=== PATIENT | female | born 1990 | race Caucasian/White ===

== ENCOUNTER → 2016-11-10 | Outpatient (REF) | payer OTHER ==
[~2016-11-10] MED LIST: ACET50TA PO; ANUS2.5C2 PR; COLA50CA3 PO; DARV100T; FLAG500T OR; IBUP600T26 PO; LABE20TAB PO; LANOOIN21 TOP; LEVA500T OR; LORTTAB5 PO; MOM30SS PO; VICO5TAB PO; no
[2016-11-10 19:40] LABS: HCG, SERUM QUANTITATIVE 118481 MIU/ML
[2016-11-10 21:21] LABS: MEAN CORPUSCULAR HEMOGLOBIN 28.6 pg (27.0-33.0); MEAN CORPUSCULAR HGB CONC 33.6 g/dl (32.0-36.5); MEAN CORPUSCULAR VOLUME 85.1 fl (80.0-96.0); RED CELL DISTRIBUTION WIDTH 14.1 % (11.5-14.5)
[2016-11-11 09:48] LABS: CONTROL LINE INT CTR LINE PRESENT; HIV SCRN NEGATIVE (NEGATIVE); HIV SCRN1 NEGATIVE (NEGATIVE)
[2016-11-11 10:02] LABS: HEPATITIS B SURFACE ANTIBODY POSITIVE (POSITIVE)
== END | disposition home or self-care (01) ==
LOC: M LAB REF 16:41
PROVIDERS: ATTEND Obstetrics & Gynecology
DX: O36.80X0 Pregnancy with inconclusive fetal viability, not applicable or unspecified (principal); Z36 Encounter for antenatal screening of mother; Z3A.00 Weeks of gestation of pregnancy not specified

== ENCOUNTER → 2016-11-20 | Outpatient (REF) | payer OTHER | END | disposition home or self-care (01) | LOC: M LAB REF 12:49 | PROVIDERS: ATTEND Obstetrics & Gynecology | DX: Z34.81 Encounter for supervision of other normal pregnancy, first trimester (principal); Z36 Encounter for antenatal screening of mother; Z3A.00 Weeks of gestation of pregnancy not specified ==

== ENCOUNTER 2017-01-14 17:47 | Emergency (ER) | payer OTHER ==
[~2017-01-14] VITALS: Ht 162.6 cm; Wt 66.7 kg
[2017-01-14] MEDS ORDERED: PRENTAB40 PO (17:55)
[2017-01-14] MEDS ORDERED: LABE10TAB PO (17:55)
[2017-01-14 18:48] LABS: CALCIUM OXALATE CRYSTALS SMALL
[2017-01-14 19:10] VITALS: BP 180/96
[2017-01-14] MEDS ORDERED: MACR100C3 PO (19:14)
== END 2017-01-14 19:27 | disposition home or self-care (01) ==
LOC: M ED 18:31
DX: O16.2 Unspecified maternal hypertension, second trimester (principal); O23.12 Infections of bladder in pregnancy, second trimester; Z3A.17 17 weeks gestation of pregnancy; O99.332 Smoking (tobacco) complicating pregnancy, second trimester

== ENCOUNTER → 2017-02-02 | Outpatient (REF) | payer OTHER ==
[~2017-02-02] MED LIST changes: +LABE10TAB PO; +MACR100C3 PO; +PRENTAB40 PO
== END ==
LOC: M LAB REF 16:40
PROVIDERS: ATTEND Obstetrics & Gynecology
DX: Z34.83 Encounter for supervision of other normal pregnancy, third trimester (principal); Z36 Encounter for antenatal screening of mother; Z3A.00 Weeks of gestation of pregnancy not specified

== ENCOUNTER → 2017-04-14 | Outpatient (CLI) | payer OTHER ==
[~2017-04-14] MED LIST changes: +IBUP-1114 PO; +LABE30TA PO; -MACR100C3 PO; +MACR100C43 PO; +PRENTAB9 PO
[2017-04-14 13:19] LABS: MEAN CORPUSCULAR HEMOGLOBIN 31.1 pg (27.0-33.0); MEAN CORPUSCULAR HGB CONC 34.1 g/dl (32.0-36.5); MEAN CORPUSCULAR VOLUME 91.2 fl (80.0-96.0); RED CELL DISTRIBUTION WIDTH 13.5 % (11.5-14.5); WHITE BLOOD COUNT 9.3 K/mm3 (4.0-10.0)
== END ==
LOC: M LAB 11:36
PROVIDERS: ATTEND Advanced Practice Midwife
DX: Z34.82 Encounter for supervision of other normal pregnancy, second trimester (principal); Z36 Encounter for antenatal screening of mother; Z3A.00 Weeks of gestation of pregnancy not specified

== ENCOUNTER → 2017-05-20 | Outpatient (REF) | payer OTHER | LOC: M LAB REF 13:08 | PROVIDERS: ATTEND Obstetrics & Gynecology | DX: Z34.03 Encounter for supervision of normal first pregnancy, third trimester (principal) ==

== ENCOUNTER 2017-06-04 14:27 | Inpatient (IN) | payer OTHER ==
[2017-06-04] VITALS (10 sets, daily range): BP systolic 129–184; BP diastolic 64–94
[~2017-06-04] VITALS: Ht 162.6 cm; Wt 75.0 kg
[~2017-06-04 14:27] MED LIST changes: -IBUP-1114 PO; -LABE30TA PO; -PRENTAB9 PO
[2017-06-04 15:32] LABS: MEAN CORPUSCULAR HEMOGLOBIN 30.3 pg (27.0-33.0); MEAN CORPUSCULAR HGB CONC 34.8 g/dl (32.0-36.5); MEAN CORPUSCULAR VOLUME 87.1 fl (80.0-96.0); RED CELL DISTRIBUTION WIDTH 13.6 % (11.5-14.5); WHITE BLOOD COUNT 12.7 K/mm3 (4.0-10.0)
[2017-06-04 15:55] LABS: ALT/SGPT 19 U/L (12-78); AST/SGOT 14 U/L (15-37); BILIRUBIN,TOTAL 0.3 MG/DL (0.2-1.0); CREATININE FOR GFR 0.58 MG/DL (0.55-1.02); GLOMERULAR FILTRATION RATE > 60.0 (>60); URIC ACID 4.1 MG/DL (2.6-6.0)
--- NOTE | 2017-06-04 17:09 | IPNPDOC ---
Text Note Date of Service The patient was seen on 06/04/17 1700. NOTE SUBJECTIVE: Patient is a 26 year old female who is a at 37.5 wks gestation with an SHMUEL 06/11/17 based off of her. Her history is significant for a prior x2 and chronic hypertension. She denies signs or symptoms of preeclampsia. She also has a history of a positive drug screen for marijuanna. Reports active movement. Denies vaginal bleeding, contractions, or leaking of fluid. Repeat scheduled for 06/15/17. OBJECTIVE: labs and vital signs see below. FHR Category I FHR tracing. Baseline 130, moderate variability, positive accelerations, no declerations. Contractions occasional. ASSESSMENT: IUP at 37.5 wks gestation, chronic hypertension, rule out chronic HTN with superimposed preeclampsia PLAN: Labs, strip, and vital signs reviewed with Dr. Bellamy. Patient to be discharged home after a reactive stip. She is to do a 24 hour urine with repeat labs. She will return to the office on Wednesday afternoon. Patient is to call on Wednesday for an appointment time. Extensive education on signs and symptoms reviewed with patient. Reviewed access to care, labor signs and symptoms, FKC, and danger signs to report. VS,Fishbone, I+O VS, Fishbone, I+O Laboratory Tests 06/04/17 15:10 Red Blood Count 3.35 L, Mean Corpuscular Volume 87.1, Mean Corpuscular Hemoglobin 30.3, Mean Corpuscular Hemoglobin Concent 34.8, Red Cell Distribution Width 13.6, Aspartate Amino Transf (AST/SGOT) 14 L, Alanine Aminotransferase (ALT/SGPT) 19, Lactate Dehydrogenase 166, Total Bilirubin 0.3, Uric Acid 4.1 Item Value Date Time Creatinine 0.58 MG/DL 06/04/17 1510 Glomerular Filtration Rate > 60.0 06/04/17 1510 Uric Acid 4.1 MG/DL 06/04/17 1510 Aspartate Amino Transf (AST/SGOT) 14 U/L L 06/04/17 1510 Total Bilirubin 0.3 MG/DL 06/04/17 1510 Alanine Aminotransferase (ALT/SGPT) 19 U/L 06/04/17 1510 Lactate Dehydrogenase 166 U/L 06/04/17 1510 Item Value Date Time Urine Random Creatinine 60.7 MG/DL 06/04/17 1504 Urine Random Total Protein 14.8 MG/DL H 06/04/17 1504 DUNG LI CNM Jun 04, 2017 17:09
[2017-06-04] MEDS ORDERED: LACTATED RINGER'S 1000 ML IV ONE (18:45)
[2017-06-04] MEDS ORDERED: LR 1,000 ML IV SCH (18:45)
[2017-06-04] MEDS ORDERED: LABE30TA PO (19:19)
--- NOTE | 2017-06-04 19:28 | IPNPDOC ---
Text Note Date of Service The patient was seen on 06/04/17. NOTE S: Denies preeclamptic symptoms. Denies contractions. Reports very active movement. O: VS see below. FHR difficult to interpret. Baseline 150, moderate variability , no accelerations presently. Contractions occasional. A: IUP at 37.5 wks, chronic hypertension, rule out superimposed preeclampsia P: Patient not to be discharged. FHR pattern not reactive. Difficult to determine baseline and f patient is having decelerations. Baseline is 130 with minimal to absent variability on maternal left. Will continue to monitor. IV started and labs ordered per protocol. Dr. Bellamy reviewed strip and agrees with plan to continue to monitor. LR ordered with a bolus and then 125cc/hr. Patient to start 24 hour urine while in hospital. VS,Fishbone, I+O VS, Fishbone, I+O Vital Signs Label Value Date Time Patient Temperature 97.6 degrees F 06/04/17 1446 Temperature Source Temporal 06/04/17 1446 Respiratory Rate 16 bpm 06/04/17 1446 Pulse 88 06/04/17 1446 Blood Pressure Assessment 139/88 (105) 06/04/17 1446 Respiratory Rate 16 bpm 06/04/17 1614 Pulse 75 06/04/17 1614 Blood Pressure Assessment 129/94 (106) 06/04/17 1614 Laboratory Tests 06/04/17 15:10 Red Blood Count 3.35 L, Mean Corpuscular Volume 87.1, Mean Corpuscular Hemoglobin 30.3, Mean Corpuscular Hemoglobin Concent 34.8, Red Cell Distribution Width 13.6, Aspartate Amino Transf (AST/SGOT) 14 L, Alanine Aminotransferase (ALT/SGPT) 19, Lactate Dehydrogenase 166, Total Bilirubin 0.3, Uric Acid 4.1 DUNG LI CNM Jun 04, 2017 19:28
[2017-06-04] MEDS ORDERED: LABETALOL 100 MG TAB PO SCH (21:00)
[2017-06-04] MEDS: LABETALOL 100 MG TAB PO SCH (22:40)
[2017-06-05] VITALS (18 sets, daily range): BP systolic 102–145; BP diastolic 56–90
--- NOTE | 2017-06-05 | REPUSA ---
OBSTETRICAL ULTRASOUND INDICATION: OB screening. FINDINGS: Normal movement, breathing movements and tone are noted. Amniotic fluid v olume is within normal limits. heart rate measures 135 bpm. Visualized structures are wit hin normal limits. IMPRESSION: 1. Biophysical profile measures 05/18. No gross abnormalities.
[2017-06-05] MEDS: LABETALOL 100 MG TAB PO SCH ×2 (09:37→21:06)
--- NOTE | 2017-06-05 10:32 | IPNPDOC ---
Text Note Date of Service The patient was seen on 06/05/17. NOTE SUBJECTIVE: Patient denies any preeclamptic symptoms. OBJECTIVE: VS: 110/63, 71; FHR 125, moderate variability, no decelerations. Contractions occasionally. BPP done last night and 05/18. ASSESSMENT: IUP at 37.6 weeks gestation, CHTN Plan: continue monitoring. Continue with 24 hour urine. Patient may have breakfast. Continue with clear liquid diet after breakfast. VS,Fishbone, I+O VS, Fishbone, I+O Laboratory Tests 06/04/17 15:10 Red Blood Count 3.35 L, Mean Corpuscular Volume 87.1, Mean Corpuscular Hemoglobin 30.3, Mean Corpuscular Hemoglobin Concent 34.8, Red Cell Distribution Width 13.6, Aspartate Amino Transf (AST/SGOT) 14 L, Alanine Aminotransferase (ALT/SGPT) 19, Lactate Dehydrogenase 166, Total Bilirubin 0.3, Uric Acid 4.1 Vital Signs Date Time Temp Pulse Resp B/P (MAP) Pulse Ox O2 Delivery O2 Flow Rate FiO2 06/05/17 09:37 71 110/63 06/05/17 02:39 98.0 06/04/17 16:14 16 DUNG LI CNM Jun 05, 2017 10:32
[2017-06-05] MEDS ORDERED: LR 1,000 ML IV SCH ×2 (11:42→17:30)
[2017-06-05] MEDS ORDERED: BICITRA 30ML SOLN UDC PO ONE (12:00)
[2017-06-05 12:15] LABS: MEAN CORPUSCULAR HEMOGLOBIN 29.8 pg (27.0-33.0); MEAN CORPUSCULAR HGB CONC 34.3 g/dl (32.0-36.5); MEAN CORPUSCULAR VOLUME 86.9 fl (80.0-96.0); RED CELL DISTRIBUTION WIDTH 13.7 % (11.5-14.5); WHITE BLOOD COUNT 9.4 K/mm3 (4.0-10.0)
[2017-06-05 12:28] LABS: ALT/SGPT 16 U/L (12-78); AST/SGOT 12 U/L (15-37); BILIRUBIN,TOTAL 0.3 MG/DL (0.2-1.0); CREATININE FOR GFR 0.69 MG/DL (0.55-1.02); GLOMERULAR FILTRATION RATE > 60.0 (>60); URIC ACID 4.3 MG/DL (2.6-6.0)
[2017-06-05] MEDS ORDERED: ONDANSETRON 4MG/2ML VIAL (J2405) As Ordered ONE (15:44)
[2017-06-05] MEDS ORDERED: MORPHINE PRES-FREE INJ 10 MG/10 ML VIAL (J2274) As Ordered ONE (15:44)
[2017-06-05] MEDS ORDERED: PHENYLephrine HCL 500 MCG/5 ML (100MCG/ML) SYRINGE (J2370) As Ordered ONE (15:44)
[2017-06-05] MEDS ORDERED: dexameTHASONE 4 MG/ML 1ML VIAL (J1100) As Ordered ONE (15:44)
[2017-06-05] MEDS ORDERED: KETOROLAC 60 MG/2 ML VIAL (J1885) As Ordered ONE (15:44)
[2017-06-05] MEDS ORDERED: OXYTOCIN INJ 10 UNITS/ML VIAL (J2590) As Ordered ONE (15:44)
[2017-06-05] MEDS ORDERED: ePHEDrine SULFATE 25 MG/5 ML(5MG/ML) SYRINGE As Ordered ONE (15:44)
[2017-06-05] MEDS ORDERED: NALOXONE INJ 0.4 MG/1 ML VIAL (J2310) IV PRN ×2 (16:06)
[2017-06-05] MEDS ORDERED: METOCLOPRAMIDE INJ 10MG/2ML VIAL (J2765) IV PRN (16:06)
[2017-06-05] MEDS ORDERED: ONDANSETRON 4MG/2ML VIAL (J2405) IV PRN ×3 (16:06→17:30)
[2017-06-05] MEDS ORDERED: NALBUPHINE HCL 10 MG/ML AMP (J2300) IV PRN ×2 (16:06→17:30)
[2017-06-05 16:34] LABS: CORD GAS ABE A -2.3; CORD GAS HCO3 A 23.3 MEQ/L; CORD GAS O2 SAT A 60.9 %; CORD GAS PCO2 A 42.9 mmHg; CORD GAS PH A 7.352 UNITS; CORD GAS PO2 A 27.6 mmHg; CORD GAS SBC A 21.7 MEQ/L; CORD GAS TCO2 A 24.6 MEQ/L
[2017-06-05 16:35] LABS: CORD GAS HCO3 V 21.3 MEQ/L; CORD GAS O2 SAT V 50.2 %; CORD GAS PCO2 V 39.9 mmHg; CORD GAS PH V 7.345 UNITS; CORD GAS PO2 V 23.1 mmHg; CORD GAS SBC V 20.1 MEQ/L; CORD GAS TCO2 V 22.5 MEQ/L
--- NOTE | 2017-06-05 17:07 | HPEPDOC ---
Obstetrical History & Physical General Date of Admission Jun 05, 2017 at 11:43 Primary Care Physician: Benjamin Bellamy DO History of Present Illness Patient is a 26-year-old female who is a 013 who is 37 weeks 6 days gestation with an SHMUEL of 06/20/2017 based off of her LMP and consistent with her first trimester ultrasound. She initiated care in her first trimester at [facility]. Her has been complicated by a positive urine drug screen for marijuana in the beginning of her and also chronic hypertension. She's been taking labetalol 300 mg twice daily. Her has also been complicated by 3 prior sections. She desires a repeat section. Patient presented for her routine OB appointment on and had elevated blood pressures in the office she had an elevated blood pressure of 164/94 and 158/92. She denied preeclamptic signs or symptoms at that time. After reviewing the information with Dr. Bellamy the plan was to send the patient to labor and delivery for monitoring and started 24-hour urine. Chief Complaint: Other (elevated blood pressures; chronic HTN) Information Provided By: Patient Age: 26 : 5 Term: 3 Pre-term: 0 Abortions: 1 Livin Care Care: Good Care Dating Final EDC: Jun 20, 2017 EGA at Admission: 37.6 Antepartum Course Diagnos(e)s chronic hypertension prior section x 3 Height (inches): 64 Pre- weight (lbs.): 144 Admission Weight (lbs.): 165 Change in Weight (lbs.): 21 Past Medical History Past Obstetrical History #1: Past Obstetrical History: Multigravida Gestation: 40.6 Type of Delivery: Ceserean section (06/2009, ) Sex of : Female Past Obstetrical History #2: Gestation: 39 Type of Delivery: Ceserean section Sex of Infant: Male Past Obstetrical History #3: Gestation: 39 Type of Delivery: Ceserean section Sex of : Female LACE INSPECTOR History: Other (missed ) Past Medical History Medical History Chronic hypertension Surgical History: section, Dilatation and Curettage Family History Significant Family History: Cancer (breast cancer and colon cancer), Diabetes Social History Social history Patient has 3 other children that are not living with her. She reports they are living with their father's. Has a boyfriend who is present and supportive. Marital Status: Single Family situation: Spouse/partner home Psychosocial History: No pertinent psych hx * Smoker: current smoker Alcohol: Denies Drugs: marijuana (positive in urine during . Negative on admission to hospital.) Abuse Violence Screening Have you been hit/kicked/slapp: No Have you been sexually assault: No Imunizations Tdap status: declined Influenza Status: declined Allergies Coded Allergies: No Known Drug Allergy (Verified Allergy, Unknown, 01/10/13) Medications Scheduled Labetalol HCl (Labetalol HCl) 300 Mg Tab, 300 MG PO BID Physical Examination Physical Examination GENERAL: Alert and oriented times three. BREAST: . ABDOMEN: Gravid and non-tender to touch. FETUS: Is vertex (VTX) by sterile vaginal examination (SVE), fetus is vertex ( VTX) by Chele. HEART RATE: Regular rate and rhythm. LUNGS: Clear to auscultation (CTA). EXTREMITIES: No edema. No clonus. Deep tendon reflexes (DTRs) + 1. Vital Signs/I&O Vital Signs Date Time Temp Pulse Resp B/P (MAP) Pulse Ox O2 Delivery O2 Flow Rate FiO2 06/05/17 10:38 84 107/67 (80) 06/05/17 02:39 98.0 06/04/17 16:14 16 Laboratory Data 24H LABS Laboratory Tests 2 06/05/17 04:00: Urine Amphetamines Screen NEGATIVE, Urine Benzodiazepines Screen NEGATIVE, Urine Opiates Screen NEGATIVE, Urine Methadone Screen NEGATIVE, Urine Barbiturates Screen NEGATIVE, Urine Phencyclidine Screen NEGATIVE, Urine Cocaine Metabolite Screen NEGATIVE, Urine Cannabinoids Screen NEGATIVE 06/05/17 12:00: Glomerular Filtration Rate > 60.0, Creatinine 0.69, Aspartate Amino Transf (AST/ SGOT) 12L, Alanine Aminotransferase (ALT/SGPT) 16, Lactate Dehydrogenase 132, Total Bilirubin 0.3, Uric Acid 4.3 06/05/17 12:17: Serology Scanned Report Hepatitis B Testing 06/05/17 16:24: Cord Arterial Blood pH 7.352, Cord Arterial Blood PCO2 42.9, Cord Arterial Blood PO2 27.6, Cord Arterial Blood HCO3 23.3, Cord Arterial Blood Total CO2 24.6, Cord Arterial Blood Base Excess -2.3, Cord Arterial Base Excess (Standard 21.7, Cord Arterial Bld Oxygen Saturation 60.9, Cord Venous Blood pH 7.345, Cord Venous Blood PCO2 39.9, Cord Venous Blood PO2 23.1, Cord Venous Blood HCO3 21.3, Cord Venous Blood Total CO2 22.5, Cord Venous Base Excess (Actual) -4.0, Cord Venous Base Excess (Standard) 20.1, Cord Venous Blood Oxygen Saturation 50.2 CBC/BMP Laboratory Tests 06/05/17 12:00 Red Blood Count 2.81 L, Mean Corpuscular Volume 86.9, Mean Corpuscular Hemoglobin 29.8, Mean Corpuscular Hemoglobin Concent 34.3, Red Cell Distribution Width 13.7, Aspartate Amino Transf (AST/SGOT) 12 L, Alanine Aminotransferase (ALT/SGPT) 16, Lactate Dehydrogenase 132, Total Bilirubin 0.3, Uric Acid 4.3 Pertinent Laboratoy Data Blood Type: A+ RBC Antibody Screen: Negative HIV: Negative Hepatitis B: Negative Rapid Plasma Reagin: Nonreactive Rubella: Immune Chlamydia/Gonorrhea: Negative Group B Streptococcus: Negative Quad Screen Test: Declined Glucose Tolerance Test: 111 Other Ultrasounds 05/26/2017: presentation cephalic; placenta is anterior grade 2; MARYJO 15.9 ; EFW 2977 g, 6 lbs. 9 oz., 41.5 percentile Vaginal Examination Position: Vertex (occiput) Assessment Heart Rate (FHR): 130 Variability: Minimal to moderate (occassional periods of absent variability noted) Decelerations: None Tocometer Contractions: Yes Frequency: irregular Multi-drug resistant Organism: No history of MDRO Assessment/Plan Assessment IUP at 37.6 weeks' gestation Chronic hypertension with superimposed preeclampsia Prior section 3 nonreassuring tracing Plan Admit to labor and delivery. Labs per protocol. Nothing by mouth. Out of bed ad nat. Anticipate repeat section per Dr. Bellamy due to history of prior C -sections with desire for repeat section, chronic hypertension with superimposed preeclampsia, nonreassuring heart rate. DUNG LI CNM Jun 05, 2017 17:07
[2017-06-05] MEDS ORDERED: DOCUSATE SODIUM 100 MG CAP PO PRN (17:15)
[2017-06-05] MEDS ORDERED: MEASLES,MUMPS,RUBELLA VACCINE INJ (MMR-II) (90707) SC SCH (17:15)
[2017-06-05] MEDS ORDERED: NORCO, ANEXSIA 5/325MG TABLET (HYDROcodone/ACETAMINOPHEN) PO PRN (17:15)
[2017-06-05] MEDS ORDERED: RHOGAM 300 MCG (1500 IU) INJ (J2790) IM SCH (17:15)
[2017-06-05] MEDS ORDERED: MORPHINE 2 MG/ML 1ML SYRINGE IV PRN (17:30)
[2017-06-05] MEDS ORDERED: fentaNYL 100 MCG/2 ML INJECTION (J3010) IV PRN (17:30)
[2017-06-05] MEDS ORDERED: miSOPROStol 200 MCG TAB (S0191) As Ordered ONE (20:07)
[2017-06-05] MEDS ORDERED: OXYTOCIN 30 UNITS IN 0.9% NaCl 500ML IV BAG (J2590) As Ordered ONE (20:09)
[2017-06-05] MEDS: NORCO, ANEXSIA 5/325MG TABLET (HYDROcodone/ACETAMINOPHEN) PO PRN (20:15)
[2017-06-05] MEDS ORDERED: CARBOPROST TROMETHAMINE 250 MCG/ML AMP As Ordered ONE (20:36)
[2017-06-05] MEDS ORDERED: CARBOPROST TROMETHAMINE 250 MCG/ML AMP IM ONE (21:00)
[2017-06-05] MEDS ORDERED: miSOPROStol 200 MCG TAB (S0191) PR ONE (21:00)
[2017-06-05 21:23] LABS: MEAN CORPUSCULAR HEMOGLOBIN 29.2 pg (27.0-33.0); MEAN CORPUSCULAR HGB CONC 33.3 g/dl (32.0-36.5); MEAN CORPUSCULAR VOLUME 87.8 fl (80.0-96.0); RED CELL DISTRIBUTION WIDTH 13.8 % (11.5-14.5); WHITE BLOOD COUNT 20.4 K/mm3 (4.0-10.0)
[2017-06-05] MEDS ORDERED: LOPERAMIDE 2 MG CAP PO ONE (22:00)
--- NOTE | 2017-06-05 23:46 | IPNPDOC ---
Text Note Date of Service The patient was seen on 06/05/17 at 2015. NOTE Subjective: Patient reports itching. She denies any nausea or dizziness. She does report passing clots. Nursing staff may provider where of 300 EBL of clots that was expressed from the uterus with fundal massage. Objective: Vital signs stable see below. Fundus is 3 above the umbilicus into the right. Fundal massage provided in a large amount of clots were expressed from the vagina. The catheter is draining clear light yellow urine. Over the next 45 minutes total amount of 1200 mL EBL was noted. Uterine atony was noted on several occasions but able to return to firm with massage and expression of blood or clots from the uterus. Assessment: Post operative from a low transverse section 4. hemorrhage. Plan: Dr. Bellamy notified of 1200 EBL after patient was given 800 mg of Cytotec , 30 milliunits in 500 mL bag of oxytocin, and Hemabate. CBC was drawn. Patient remains asymptomatic. After Hemabate the uterus firmed up with minimal bleeding. Patient is to keep catheter in overnight until morning and will have a repeat CBC done at 0600. Nursing Center call with any extra clotting or bleeding is noted. VS,Fishbone, I+O VS, Fishbone, I+O Laboratory Tests 06/05/17 12:00 Red Blood Count 2.81 L, Mean Corpuscular Volume 86.9, Mean Corpuscular Hemoglobin 29.8, Mean Corpuscular Hemoglobin Concent 34.3, Red Cell Distribution Width 13.7, Aspartate Amino Transf (AST/SGOT) 12 L, Alanine Aminotransferase (ALT/SGPT) 16, Lactate Dehydrogenase 132, Total Bilirubin 0.3, Uric Acid 4.3 06/05/17 21:18 Red Blood Count 2.55 L, Mean Corpuscular Volume 87.8, Mean Corpuscular Hemoglobin 29.2, Mean Corpuscular Hemoglobin Concent 33.3, Red Cell Distribution Width 13.8 Vital Signs Date Time Temp Pulse Resp B/P (MAP) Pulse Ox O2 Delivery O2 Flow Rate FiO2 06/05/17 21:56 97.9 92 19 145/90 (108) 98 Room Air DUNG LI CNM Jun 05, 2017 23:46
[2017-06-05] MEDS: IBUPROFEN 800 MG TAB PO SCH (23:58)
[2017-06-06] MEDS: LR 1,000 ML IV SCH ×2 (01:52→09:37)
[2017-06-06 02:00] VITALS: BP 109/55
[2017-06-06 05:29] VITALS: BP 112/59
[2017-06-06 07:01] LABS: MEAN CORPUSCULAR HEMOGLOBIN 29.8 pg (27.0-33.0); MEAN CORPUSCULAR HGB CONC 33.8 g/dl (32.0-36.5); MEAN CORPUSCULAR VOLUME 88.2 fl (80.0-96.0); WHITE BLOOD COUNT 13.6 K/mm3 (4.0-10.0)
[2017-06-06] MEDS: IBUPROFEN 800 MG TAB PO SCH ×2 (07:59→15:41)
[2017-06-06] MEDS: PRENATAL VITAMINS CHEWABLE TABLET PO SCH (07:59)
[2017-06-06] MEDS: LABETALOL 100 MG TAB PO SCH ×2 (09:37→21:40)
--- NOTE | 2017-06-06 11:08 | RO ---
DATE OF PROCEDURE: 06/05/2017 Madie is a 26-year-old female with a history of three prior sections who is admitted at 37-6/7 weeks gestation for elevated blood pressures, chronic hypertension with superimposed preeclampsia. Upon admission, she was found to have decreased variability on her tracing for prolonged period of time. Given that she was scheduled for repeat section, a decision was made to proceed with the repeat section. PREOPERATIVE DIAGNOSES: 1. Intrauterine at 37-6/7 weeks gestation with a history of section times three. 2. Chronic hypertension. 3. Superimposed preeclampsia. 4. Nonreassuring heart rate tracing. POSTPROCEDURE DIAGNOSES: 1. Intrauterine at 37-6/7 weeks gestation with a history of section times three. 2. Chronic hypertension. 3. Superimposed preeclampsia. 4. Nonreassuring heart rate tracing. 5. Pelvic adhesion. PROCEDURES: 1. Repeat section. 2. Revision of old scar. 3. Lysis of adhesion. ANESTHESIA: Spinal. SURGEON: Benjamin Bellamy DO PUBLICATIONS INSPECTOR: Kinza Cintron COMPLICATIONS: None. ESTIMATED BLOOD LOSS: 500 mL. FINDINGS: Live female in left occiput transverse position. scores of 8 and 9. weight 7 pounds 3 ounces. Very thin lower uterine segment noted. Bilateral ovaries are within normal limits. A small fibroid uterus was noted. DESCRIPTION OF PROCEDURE: After obtaining informed consent, the patient was taken to the operating room where spinal anesthetic was found to be adequate. She was then draped prepped usual sterile fashion in supine position. At this point, elliptical incision was made over the old scar. The fascia was incised in midline fashion and carried through laterally. Superior aspect of the fascia was then grasped with two Brandi clamps, tented off and dissected off the rectus muscles sharply. The inferior aspect was dissected off in a similar fashion. Rectus muscles in midline fashion. Peritoneum identified. Peritoneal cavity entered bluntly. Superior and inferior dissection of the peritoneum was then done with good visualization of the bladder. At this point, a Mobius skin retractor was placed. A low-transverse uterine incision was made. was delivered in atraumatic fashion. Nose and mouth bulb suctioned. Cord doubly clamped and cut. The was handed over to the waiting warmer. Cord blood and cord gas were sent. Placenta removed manually. Uterus cleared of all clot and debris. Uterine incision was then repaired in two separate layers of 0 Vicryl sutures. Pelvic adhesions were lysed with a series of blunt and sharp dissection. After closing of the uterine incision, pelvis copiously irrigated with normal saline and suctioned out. Attention turned to the peritoneum, which was closed in a running fashion using #2-0 Vicryl. Fascia closed in two separate segment of #0 Vicryl sutures and the skin was reapproximated in subcuticular fashion using #3-0 Vicryl on a Parminder. Steri-Strips placed. The patient tolerated procedure well. She was then transferred to recovery room in stable condition.
[2017-06-06] MEDS: NORCO, ANEXSIA 5/325MG TABLET (HYDROcodone/ACETAMINOPHEN) PO PRN ×2 (12:03→21:40)
[2017-06-06 14:06] VITALS: BP 130/74
[2017-06-06 18:21] VITALS: BP 138/86
[2017-06-06 21:30] VITALS: BP 139/103
[2017-06-06 22:20] VITALS: BP 131/65
[2017-06-07] MEDS: IBUPROFEN 800 MG TAB PO SCH ×3 (01:33→14:57)
[2017-06-07 06:27] LABS: MEAN CORPUSCULAR HEMOGLOBIN 29.1 pg (27.0-33.0); MEAN CORPUSCULAR HGB CONC 32.3 g/dl (32.0-36.5); MEAN CORPUSCULAR VOLUME 90.1 fl (80.0-96.0); RED CELL DISTRIBUTION WIDTH 14.5 % (11.5-14.5); WHITE BLOOD COUNT 9.2 K/mm3 (4.0-10.0)
[2017-06-07 06:29] VITALS: BP 114/65
[2017-06-07] MEDS: PRENATAL VITAMINS CHEWABLE TABLET PO SCH (07:32)
[2017-06-07 07:33] VITALS: BP 129/86
[2017-06-07] MEDS: LABETALOL 100 MG TAB PO SCH (07:33)
[2017-06-07] MEDS ORDERED: IBUP-1114 PO (17:20)
[2017-06-07] MEDS ORDERED: PRENTAB9 PO (17:20)
[2017-06-07 18:00] VITALS: BP 118/62
[2017-06-07 18:39] LABS: MEAN CORPUSCULAR HEMOGLOBIN 31.2 pg (27.0-33.0); MEAN CORPUSCULAR VOLUME 89.2 fl (80.0-96.0); WHITE BLOOD COUNT 10.7 K/mm3 (4.0-10.0)
--- NOTE | 2017-06-15 14:45 | IPNPDOC ---
Text Note Date of Service The patient was seen on 06/06/17 at 0900. NOTE Subjective: Patient reports that she is doing well. Denies passing anymore clots. Denies nausea of dizziness. Reports fatigue. She is caring for her without assistance. Objective: Vital signs: see below. Labs: see below. Fundus is firm and at the umbilicus with no backup expressed. Patient appears slightly pale. Clear light yellow urine draining to gravity from brandt. LR running at 125 cc/hr. Assessment: day 1 postoperative, hemorrhage. Plan: Dr. Bellamy notified of H/H. No new orders since patient is not symptomatic. Dressing to be removed this afternoon and if no dizziness or lightheadedness patient may shower. Brandt catheter to be removed now and IV to be saline locked. CBC to be repeated tomorrow morning. Nursing staff to notify provider if any changes in symptoms from low H/H. VS,Fishbone, I+O VS, Fishbone, I+O Vital Signs Label Value Date Time Patient Temperature 98.0 degrees F 06/06/17 0200 Temperature Source Temporal 06/06/17 0200 Pulse 63 06/06/17 0200 Respiratory Rate 18 bpm 06/06/17 0200 Blood Pressure Assessment 109/55 (73) 06/06/17 0200 Source Automatic Cuff (NIBP) Bedside Pulse Oximetry 99 % 06/06/17 0200 Patient Temperature 98.4 degrees F 06/06/17 0529 Temperature Source Temporal 06/06/17 0529 Pulse 79 06/06/17 0529 Respiratory Rate 18 bpm 06/06/17 0529 Blood Pressure Assessment 112/59 (76) 06/06/17 0529 Source Automatic Cuff (NIBP) Bedside Pulse Oximetry 98 % 06/06/17 0529 Pulse 80 06/06/17 0937 Blood Pressure Assessment 117/56 06/06/17 0937 Item Value Date Time Oxygen Delivery Method Room Air 06/06/17 0200 Oxygen Delivery Method Room Air 06/06/17 0529 Item Value Date Time White Blood Count 13.6 K/mm3 H 06/06/17 0644 Red Blood Count 2.19 M/mm3 L 06/06/17 0644 Hemoglobin 6.5 g/dl *L 06/06/17 06 Hematocrit 19.3 % L 06/06/17 0644 Platelet Count 220 k/mm3 06/06/17 0644 DUNG LI CNM Jun 15, 2017 14:45
--- NOTE | 2017-06-15 17:18 | DS.PDOC ---
Discharge Summary General Date of Admission Jun 05, 2017 at 11:43 Date of Discharge June 07, 2017 at 2000. Attending Physician: Benjamin Bellamy DO Discharge Summary PROCEDURES PERFORMED DURING STAY: Repeat low transverse section. Blood transfusion- 2 units of PRBC. ADMITTING DIAGNOSES: 1. IUP at 37.6 wks gestation 2. chronic hypertension with superimposed preeclampsia 3. Prior section x 3 with desired repeat 4. Non reassuring heart rate tracing. DISCHARGE DIAGNOSES: 1. Day 2 postoperative 2. hemorrhage COMPLICATIONS/CHIEF COMPLAINT: Repeat C/S. HISTORY OF PRESENT ILLNESS: Patient is a 26 year old female who is a at 37.6 weeks gestation. Her has been complicated by CHTN. She present to the office with elevated BP's with the first systolic being greater than 160. After being in L&D the heart rate would have minimal and absent variability for long periods of time. After discussing patient's tracing, diagnosis of chronic HTN with superimposed preeclampsia, the decision was made by Dr. Bellamy to proceed with the patient's desired repeat section. HOSPITAL COURSE: The patient received 2 units of PRBC after discussing H/H with Dr. Bellamy. Consent was obtained from patient, along with education on recommendation of blood transfusion. Patient had no reaction from transfusion. Her H/H did increase and patient reported feeling less tired. She desired to be discharged from hospital. Reviewed with Dr. Bellamy and patient may be discharged after CBC obtained and reviewed. DISCHARGE MEDICATIONS: Please see below. ALLERGIES: Please see below. PHYSICAL EXAMINATION ON DISCHARGE: VITAL SIGNS: Please see below. GENERAL: Alert and oriented x 3. RESPIRATORY EXAMINATION: Regular rate. Regular rhythm. No use of accessory muscles. ABDOMINAL EXAMINATION: Low transverse incision is approximated, dry, and without erythema. PERINEUM: scant amount of dark red bleeding. EXTREMITIES: no edema present. SKIN: slightly pale LABORATORY DATA: Please see below. ACTIVITY: As tolerated. Pelvic rest. DIET: regular DISCHARGE INSTRUCTIONS: 1. Patient to follow up in 2 weeks for an incision check and 6 weeks . 2. Discharge to home. 3. Call with signs or symptoms of mastitis, endometritis, DVT, pulmonary embolism, hemorrhage, infection at the incision, fever, depression or psychosis. 4. Reviewed pelvic rest, pain management, and incisional care. DISCHARGE CONDITION: Stable. Vital Signs/I&Os Vital Signs Label Value Date Time Patient Temperature 97.9 degrees F 06/07/17 0629 Temperature Source Temporal 06/07/17 0629 Pulse 94 06/07/17 0629 Respiratory Rate 16 bpm 06/07/17 0629 Blood Pressure Assessment 114/65 (81) 06/07/17 0629 Source Automatic Cuff (NIBP) Patient Temperature 98.1 degrees F 06/07/17 1800 Pulse 88 06/07/17 1800 Respiratory Rate 18 bpm 06/07/17 1800 Blood Pressure Assessment 118/62 (80) 06/07/17 1800 Source Automatic Cuff (NIBP) Laboratory Data CBC/BMP Item Value Date Time White Blood Count 9.2 K/mm3 06/07/17 0606 Red Blood Count 1.77 M/mm3 L 06/07/17 0606 Hemoglobin 5.2 g/dl *L 06/07/17 0606 Hematocrit 15.9 % L 06/07/17 0606 Mean Corpuscular Volume 90.1 fl 06/07/17 0606 Mean Corpuscular Hemoglobin 29.1 pg 06/07/17 0606 Mean Corpuscular Hemoglobin Concent 32.3 g/dl 06/07/17 0606 Red Cell Distribution Width 14.5 % 06/07/17 0606 Platelet Count 180 k/mm3 06/07/17 0606 Item Value Date Time White Blood Count 10.7 K/mm3 H 06/07/17 1830 Red Blood Count 2.44 M/mm3 L 06/07/17 1830 Hemoglobin 7.6 g/dl L # 06/07/17 1830 Hematocrit 21.8 % L 06/07/17 1830 Mean Corpuscular Volume 89.2 fl 06/07/17 1830 Mean Corpuscular Hemoglobin 31.2 pg 06/07/17 1830 Mean Corpuscular Hemoglobin Concent 35.0 g/dl 06/07/17 1830 Red Cell Distribution Width 14.0 % 06/07/17 1830 Platelet Count 216 k/mm3 06/07/17 1830 Item Value Date Time White Blood Count 9.4 K/mm3 06/05/17 1200 Red Blood Count 2.81 M/mm3 L 06/05/17 1200 Hemoglobin 8.4 g/dl L 06/05/17 1200 Hematocrit 24.4 % L 06/05/17 1200 Mean Corpuscular Volume 86.9 fl 06/05/17 1200 Mean Corpuscular Hemoglobin 29.8 pg 06/05/17 1200 Mean Corpuscular Hemoglobin Concent 34.3 g/dl 06/05/17 1200 Red Cell Distribution Width 13.7 % 06/05/17 1200 Platelet Count 231 k/mm3 06/05/17 1200 Discharge Medications Scheduled Labetalol HCl (Labetalol HCl) 300 Mg Tab, 300 MG PO BID, (Reported) Multivitamins/ ( 27-0.8 mg) 1 Tab Tab, 1 TAB PO DAILY, (Reported ) Scheduled PRN Ibuprofen (Ibuprofen) 400 Mg Tab, 800 MG PO Q8HP PRN for PAIN, (Reported) Allergies Coded Allergies: No Known Drug Allergy (Verified Allergy, Unknown, 01/10/13) DUNG LI CNM Jun 15, 2017 17:18
== END 2017-06-07 19:30 | disposition home or self-care (01) | DRG 540 ==
LOC: M LDO 14:27 → M OBS 06-05 11:43
PROVIDERS: ADMIT Obstetrics & Gynecology; ATTEND Obstetrics & Gynecology
PROC: 10D00Z1 Extraction of Products of Conception, Low, Open Approach (ICD-10-PCS; principal; 2017-06-05 15:58)
DX: O11.4 Pre-existing hypertension with pre-eclampsia, complicating childbirth (principal); O72.1 Other immediate postpartum hemorrhage; O34.211 Maternal care for low transverse scar from previous cesarean delivery; Z3A.37 37 weeks gestation of pregnancy; O76 Abnormality in fetal heart rate and rhythm complicating labor and delivery; O94 Sequelae of complication of pregnancy, childbirth, and the puerperium; Z37.0 Single live birth; O10.02 Pre-existing essential hypertension complicating childbirth

== ENCOUNTER 2017-11-06 10:49 | Emergency (ER) | payer OTHER ==
[2017-11-06] MEDS: IBUPROFEN 600 MG TAB PO ×2 (13:04)
== END 2017-11-06 13:55 | disposition home or self-care (01) ==
LOC: M ED 10:49
DX: S82.302A Unspecified fracture of lower end of left tibia, initial encounter for closed fracture (principal); X58.XXXA Exposure to other specified factors, initial encounter; Y92.89 Other specified places as the place of occurrence of the external cause; F17.210 Nicotine dependence, cigarettes, uncomplicated
CPT/HCPCS: 73610

== ENCOUNTER 2017-11-29 14:13 | Emergency (ER) | payer OTHER ==
[2017-11-29] MEDS: ACETAMINOPHEN 325 MG TAB PO (15:10)
== END 2017-11-29 15:39 | disposition home or self-care (01) ==
LOC: M ED 14:13
DX: S00.93XA Contusion of unspecified part of head, initial encounter (principal); Y35.813A Legal intervention involving manhandling, suspect injured, initial encounter; Y92.009 Unspecified place in unspecified non-institutional (private) residence as the place of occurrence of the external cause; F17.210 Nicotine dependence, cigarettes, uncomplicated
CPT/HCPCS: 70450

== ENCOUNTER → 2018-09-26 | Outpatient (REF) | payer OTHER, MEDICAID ==
[~2018-09-26] MED LIST changes: +HYDR12.55 PO; +IBUP-1114 PO; +LABE300T2 PO; +NORCOTAB PO; +PRENTAB9 PO
[2018-09-26 17:22] LABS: BASO # 0.1 10^3/uL (0.0-0.2); BASO % 0.9 % (0.0-1.0); EOS # 0.3 10^3/uL (0.0-0.50); EOS % 3.7 % (0.0-3.0); HEMOGLOBIN 14.6 g/dl (12.0-15.5); LYMPH % 24.5 % (24.0-44.0); MEAN CORPUSCULAR HEMOGLOBIN 28.8 pg (27.0-33.0); MEAN CORPUSCULAR HGB CONC 33.2 g/dl (32.0-36.5); MEAN CORPUSCULAR VOLUME 86.8 fl (80.0-96.0); MONO # 0.7 10^3/uL (0.0-0.8); NEUTROPHILS # 5.1 10^3/uL (1.8-7.7); NEUTROPHILS % 62.8 % (36.0-66.0); PLATELET COUNT, AUTOMATED 312 10^3/uL (150-450); RED BLOOD COUNT 5.07 10^6/uL (4.00-5.40); WHITE BLOOD COUNT 8.2 10^3/uL (4.0-10.0)
[2018-09-26 17:29] LABS: ALBUMIN 4.2 GM/DL (3.2-5.2); ALT/SGPT 25 U/L (12-78); BILIRUBIN,TOTAL 0.4 MG/DL (0.2-1.0); BLOOD UREA NITROGEN 14 MG/DL (7-18); CALCIUM LEVEL 9.4 MG/DL (8.5-10.1); CARBON DIOXIDE LEVEL 28 MEQ/L (21-32); CHLORIDE LEVEL 106 MEQ/L (98-107); CHOLESTEROL LEVEL 163 MG/DL (<200); CHOLESTEROL RISK RATIO 3.468 (<5); CREATININE FOR GFR 0.82 MG/DL (0.55-1.30); GLOMERULAR FILTRATION RATE > 60.0 (>60); GLUCOSE, FASTING 84 MG/DL (70-100); HDL CHOLESTEROL 47 MG/DL (>40); LDL CHOLESTEROL 80 MG/DL (<100); NON-HDL-C 116 MG/DL; SODIUM LEVEL 140 MEQ/L (136-145); TOTAL 25(OH) VITAMIN D 23.2 NG/ML (30.0-100.0); TOTAL PROTEIN 7.7 GM/DL (6.4-8.2); TRIGLYCERIDES LEVEL 178 MG/DL (<150)
[2018-09-26 17:45] LABS: HEMOGLOBIN A1c 5.2 %
== END ==
LOC: M LAB REF 16:48
PROVIDERS: ATTEND Nurse Practitioner Family
DX: I10 Essential (primary) hypertension (principal); Z13.9 Encounter for screening, unspecified

== ENCOUNTER → 2019-01-10 | Outpatient (CLI) | payer OTHER ==
[~2019-01-10] MED LIST changes: -ACET50TA PO; +HYDR-3715 PO; +LABE200T13 PO; -LABE20TAB PO; +MAPA500T17 PO; -NORCOTAB PO
[2019-01-10 13:46] LABS: HEMATOCRIT 44.5 % (36.0-47.0); MEAN CORPUSCULAR HEMOGLOBIN 29.8 pg (27.0-33.0); MEAN CORPUSCULAR HGB CONC 33.7 g/dl (32.0-36.5); MEAN CORPUSCULAR VOLUME 88.3 fl (80.0-96.0); PLATELET COUNT, AUTOMATED 323 10^3/uL (150-450); RED BLOOD COUNT 5.04 10^6/uL (4.00-5.40); WHITE BLOOD COUNT 8.1 10^3/uL (4.0-10.0)
[2019-01-10 13:59] LABS: FREE T4 1.15 NG/DL (0.76-1.46); THYROID STIMULATING HORMONE 1.95 uIU/ML (0.358-3.740)
== END ==
LOC: M SMT 10:54
PROVIDERS: ATTEND Obstetrics & Gynecology
DX: N93.9 Abnormal uterine and vaginal bleeding, unspecified (principal)

== ENCOUNTER → 2019-01-13 | Outpatient (CLI) | payer OTHER ==
--- NOTE | 2019-01-13 13:36 | REP ---
PELVIC ULTRASOUND: Real-time sonographic evaluation of the pelvis is performed utilizing transabdominal and endovaginal technique. The bladder measures 3.1 x 4.6 x 3.9 cm. The uterus measures 8.0 x 4.1 x 6.6 cm. The endometrial thickness is 5 mm. There is a small amount of endometrial fluid with a thickness of 2 mm. The right ovary measure 3.7 x 2.2 x 2.1 cm and left ovary 4.8 x 2.6 x 3.4. There are two dominant follicles in the left ovary, 1.9 cm and 1.5 cm in diameter. There is no other evidence of adnexal mass or free fluid. There is no evidence of ovarian torsion, blood flow seen in each ovary with duplex Doppler evaluation, RI right ovary 0.45 and left ovary 0.48. IMPRESSION: Small amount of endometrial fluid. Normal endometrial thickness of 5 mm. Two dominant follicles in the left ovary, larger measuring 1.9 cm. No other evidence of adnexal mass or free fluid. Electronically Signed by Seamus Ferreira MD 01/13/2019 04:21 P
== END ==
LOC: M RAD 09:50
PROVIDERS: ATTEND Obstetrics & Gynecology
DX: N85.8 Other specified noninflammatory disorders of uterus (principal); N83.01 Follicular cyst of right ovary

== ENCOUNTER → 2019-02-01 | Outpatient (CLI) | payer OTHER ==
[~2019-02-01] MED LIST changes: +AMLO10TA5 PO; +NAPR-885 PO
--- NOTE | 2019-02-02 00:46 | ECGEPIP ---
Stationary ECG Study [facility] Test Date: 2019-02-01 Pat Name: FROYLAN FRANCOIS Department: Room: - Gender: F [employer]: FARIHA : 1990 Requested By: Bolivar Sheldon Order Number: [id number] Reading MD: Milo Reyes Measurements Intervals [place] Rate: 68 P: 59 DE: 143 QRS: 62 QRSD: 98 T: 40 QT: 402 QTc: 430 Interpretive Statements SINUS RHYTHM WITH SINUS ARRHYTHMIA Comparison tracing not on file Electronically Signed On 02-02-2019 0:46:22 EDT by Milo Reyes
== END ==
LOC: M EKG 13:26
PROVIDERS: ATTEND Anesthesiology
DX: I10 Essential (primary) hypertension (principal); I49.9 Cardiac arrhythmia, unspecified

== ENCOUNTER → 2019-02-09 | Outpatient (REF) | payer OTHER | LOC: M LAB REF 19:25 | PROVIDERS: ATTEND Obstetrics & Gynecology | DX: Z12.4 Encounter for screening for malignant neoplasm of cervix (principal) ==

== ENCOUNTER 2019-04-07 11:26 | Emergency (ER) | payer OTHER ==
[~2019-04-07] VITALS: Ht 162.6 cm; Wt 72.7 kg
[2019-04-07] MEDS ORDERED: GABA-1171 PO (13:17)
[2019-04-07] MEDS ORDERED: HYDR50TAB PO (13:17)
[2019-04-07] MEDS ORDERED: IBUP-1022 PO (13:17)
[2019-04-07 13:47] VITALS: BP 152/100
[2019-04-07] MEDS ORDERED: KETOROLAC 30 MG/ML VIAL (J1885) IM ONE (14:00)
--- NOTE | 2019-04-07 14:28 | REP ---
Clinical: thoracic back pain. Technique: AP, lateral, and swimmers views. Findings: Alignment and kyphosis is maintained. Vertebral bodies intact. No acute fracture / compression injury or subluxation. No degenerative changes. Paravertebral soft tissues are normal. Impression: Normal thoracic spine series. Electronically Signed by Aquiles Boucher MD 04/07/2019 02:19 P
--- NOTE | 2019-04-07 14:28 | REP ---
Clinical: Back pain . Technique: AP, lateral, bilateral oblique, and coned-down views. Findings: Alignment and lordosis is maintained. The vertebral bodies including transverse process and spinous processes are intact and normal. There is no evidence for acute fracture / compression injury or subluxation. No evidence for spondylolysis or spondylolisthesis. No significant degenerative change is noted. Impression: Normal lumbosacral spine radiograph series. Electronically Signed by Aquiles Boucher MD 04/07/2019 02:20 P
[2019-04-07] MEDS ORDERED: KETO10TAB PO (15:01)
== END 2019-04-07 15:10 | disposition home or self-care (01) ==
LOC: M ED 11:26
DX: M54.5 Low back pain (principal); G89.29 Other chronic pain; I10 Essential (primary) hypertension; F17.200 Nicotine dependence, unspecified, uncomplicated; Z79.899 Other long term (current) drug therapy
CPT/HCPCS: 72070; 72110; 96372; 99283; J1885

== ENCOUNTER → 2019-07-05 | Outpatient (REF) | payer OTHER ==
[~2019-07-05] MED LIST changes: +GABA-1171 PO; +HYDR50TAB PO; +IBUP-1022 PO; +KETO10TAB PO
== END ==
LOC: EEVIPCON 13:48 → M LAB REF 13:48
PROVIDERS: ATTEND Physician Assistant
DX: L02.91 Cutaneous abscess, unspecified (principal)

== ENCOUNTER 2019-10-11 13:00 | Emergency (ER) | payer OTHER ==
[~2019-10-11] VITALS: Ht 157.5 cm; Wt 65.6 kg
[2019-10-11] MEDS ORDERED: LISI-542 (13:05)
--- NOTE | 2019-10-11 13:24 | REP ---
Clinical: Trauma. Technique: AP, lateral, bilateral oblique views right fifth digit . Findings: The osseous structures and joint spaces are intact and normal. There is no evidence for acute fracture or dislocation. Surrounding soft tissues are unremarkable. No subcutaneous emphysema or radiodense foreign body. Impression: No obvious acute fracture or dislocation. Electronically Signed by Aquiles Boucher MD 10/11/2019 01:15 P
[2019-10-11 13:58] VITALS: BP 154/92
== END 2019-10-11 14:00 | disposition home or self-care (01) ==
LOC: M ED 13:00
DX: S60.051A Contusion of right little finger without damage to nail, initial encounter (principal); W23.1XXA Caught, crushed, jammed, or pinched between stationary objects, initial encounter; Y92.9 Unspecified place or not applicable; Y93.9 Activity, unspecified; Y99.9 Unspecified external cause status; M53.3 Sacrococcygeal disorders, not elsewhere classified; I10 Essential (primary) hypertension; Z79.899 Other long term (current) drug therapy

== ENCOUNTER 2020-06-09 17:06 | Emergency (ER) | payer OTHER ==
[~2020-06-09] VITALS: Ht 162.6 cm; Wt 69.1 kg
[~2020-06-09 17:06] MED LIST changes: -AMLO10TA5 PO; +AMLO1TAB25 PO; +LISI-542
[2020-06-09 17:35] VITALS: BP 150/97
[2020-06-09] MEDS ORDERED: HYDR12.55 PO ×2 (17:45→17:58)
[2020-06-09] MEDS ORDERED: AUGM875T28 PO ×2 (17:45→17:58)
[2020-06-09] MEDS ORDERED: AMLO10TA PO ×2 (17:45→17:58)
[2020-06-09] MEDS ORDERED: ACYC1CAP20 PO (17:58)
[2020-06-09] MEDS ORDERED: amLODIPine 10 MG TAB PO ONE (18:15)
[2020-06-09] MEDS ORDERED: hydroCHLOROthiazide 12.5 MG CAPSULE PO ONE (18:15)
== END 2020-06-09 18:24 | disposition home or self-care (01) ==
LOC: M ED 17:06
DX: I10 Essential (primary) hypertension (principal); B00.9 Herpesviral infection, unspecified; L02.31 Cutaneous abscess of buttock; F17.200 Nicotine dependence, unspecified, uncomplicated; Z79.899 Other long term (current) drug therapy

== ENCOUNTER → 2020-08-26 | Outpatient (REF) | payer OTHER ==
[~2020-08-26] MED LIST changes: +ACYC1CAP20 PO; +AMLO10TA PO; +AUGM875T28 PO
[2020-08-26 13:39] LABS: BASO # 0.1 10^3/uL (0.0-0.2); BASO % 0.7 % (0.0-1.0); EOS # 0.2 10^3/uL (0.0-0.5); EOS % 2.6 % (0.0-3.0); HEMATOCRIT 40.7 % (36.0-47.0); HEMOGLOBIN 13.5 g/dl (12.0-15.5); LYMPH # 2.7 10^3/uL (1.5-5.0); LYMPH % 30.8 % (24.0-44.0); MEAN CORPUSCULAR HGB CONC 33.2 g/dl (32.0-36.5); MEAN CORPUSCULAR VOLUME 87.5 fl (80.0-96.0); NEUTROPHILS # 4.8 10^3/uL (1.5-8.5); NEUTROPHILS % 54.7 % (36.0-66.0); PLATELET COUNT, AUTOMATED 376 10^3/uL (150-450); RED BLOOD COUNT 4.65 10^6/uL (4.00-5.40); WHITE BLOOD COUNT 8.7 10^3/uL (4.0-10.0)
[2020-08-26 13:45] LABS: ALBUMIN 3.9 GM/DL (3.2-5.2); ALT/SGPT 17 U/L (12-78); BILIRUBIN,TOTAL 0.3 MG/DL (0.2-1.0); BLOOD UREA NITROGEN 28 MG/DL (7-18); CALCIUM LEVEL 9.3 MG/DL (8.5-10.1); CARBON DIOXIDE LEVEL 30 MEQ/L (21-32); CHLORIDE LEVEL 104 MEQ/L (98-107); CHOLESTEROL LEVEL 161 MG/DL (<200); CHOLESTEROL RISK RATIO 2.775 (<5); CREATININE FOR GFR 0.95 MG/DL (0.55-1.30); GLOMERULAR FILTRATION RATE > 60.0 (>60); GLUCOSE, FASTING 89 MG/DL (70-100); HDL CHOLESTEROL 58 MG/DL (>40); LDL CHOLESTEROL 90 MG/DL (<100); NON-HDL-C 103 MG/DL; POTASSIUM SERUM 3.6 MEQ/L (3.5-5.1); SODIUM LEVEL 139 MEQ/L (136-145); TOTAL PROTEIN 7.1 GM/DL (6.4-8.2); TRIGLYCERIDES LEVEL 65 MG/DL (<150)
== END ==
LOC: M LAB REF 12:26
PROVIDERS: ATTEND Nurse Practitioner Family
DX: I10 Essential (primary) hypertension (principal)

== ENCOUNTER → 2020-11-19 | Outpatient (REF) | payer OTHER ==
[~2020-11-19] MED LIST changes: +LABE100T4 PO; -LABE10TAB PO; -LISI-542; +LISI-898
[2020-11-19 17:13] LABS: ALBUMIN 3.7 GM/DL (3.2-5.2); ALT/SGPT 23 U/L (12-78); BILIRUBIN,TOTAL 0.2 MG/DL (0.2-1.0); BLOOD UREA NITROGEN 22 MG/DL (7-18); CARBON DIOXIDE LEVEL 30 MEQ/L (21-32); CHLORIDE LEVEL 108 MEQ/L (98-107); CHOLESTEROL LEVEL 153 MG/DL (<200); CHOLESTEROL RISK RATIO 3.187 (<5); CREATININE FOR GFR 0.67 MG/DL (0.55-1.30); GLOMERULAR FILTRATION RATE > 60.0 (>60); GLUCOSE, FASTING 72 MG/DL (70-100); HDL CHOLESTEROL 48 MG/DL (>40); LDL CHOLESTEROL 85 MG/DL (<100); NON-HDL-C 105 MG/DL; POTASSIUM SERUM 4.4 MEQ/L (3.5-5.1); SODIUM LEVEL 143 MEQ/L (136-145); TOTAL PROTEIN 6.6 GM/DL (6.4-8.2); TRIGLYCERIDES LEVEL 100 MG/DL (<150)
[2020-11-19 17:19] LABS: BASO % 0.6 % (0.0-1.0); EOS # 0.1 10^3/uL (0.0-0.5); EOS % 1.5 % (0.0-3.0); HEMATOCRIT 36.9 % (36.0-47.0); HEMOGLOBIN 12.1 g/dl (12.0-15.5); LYMPH # 2.1 10^3/uL (1.5-5.0); LYMPH % 29.5 % (24.0-44.0); MEAN CORPUSCULAR HEMOGLOBIN 28.9 pg (27.0-33.0); MEAN CORPUSCULAR HGB CONC 32.8 g/dl (32.0-36.5); MEAN CORPUSCULAR VOLUME 88.1 fl (80.0-96.0); MONO # 0.7 10^3/uL (0.0-0.8); MONO % 9.3 % (0.0-5.0); NEUTROPHILS # 4.2 10^3/uL (1.5-8.5); NEUTROPHILS % 58.7 % (36.0-66.0); PLATELET COUNT, AUTOMATED 296 10^3/uL (150-450); RED BLOOD COUNT 4.19 10^6/uL (4.00-5.40); WHITE BLOOD COUNT 7.2 10^3/uL (4.0-10.0)
== END ==
LOC: M LAB REF 16:30
PROVIDERS: ATTEND Nurse Practitioner Family
DX: I10 Essential (primary) hypertension (principal)

== ENCOUNTER → 2020-11-26 | Outpatient (REF) | payer OTHER ==
[2020-11-26 17:32] LABS: ALBUMIN 3.6 GM/DL (3.2-5.2); ALT/SGPT 21 U/L (12-78); BILIRUBIN,TOTAL 0.2 MG/DL (0.2-1.0); BLOOD UREA NITROGEN 16 MG/DL (7-18); CALCIUM LEVEL 8.8 MG/DL (8.5-10.1); CARBON DIOXIDE LEVEL 31 MEQ/L (21-32); CHLORIDE LEVEL 106 MEQ/L (98-107); CREATININE FOR GFR 0.75 MG/DL (0.55-1.30); GLOMERULAR FILTRATION RATE > 60.0 (>60); GLUCOSE, FASTING 90 MG/DL (70-100); MAGNESIUM LEVEL 2.1 MG/DL (1.8-2.4); POTASSIUM SERUM 3.8 MEQ/L (3.5-5.1); SODIUM LEVEL 141 MEQ/L (136-145); TOTAL PROTEIN 6.7 GM/DL (6.4-8.2)
[2020-11-26 17:40] LABS: FOLATE 10.1 NG/ML; VITAMIN B12 LEVEL 300 PG/ML
== END ==
LOC: M LAB REF 16:26
PROVIDERS: ATTEND Nurse Practitioner Family
DX: R20.0 Anesthesia of skin (principal)

== ENCOUNTER 2021-01-12 09:48 | Inpatient (IN) | payer OTHER ==
[2021-01-12] VITALS (25 sets, daily range): BP systolic 71–105; BP diastolic 40–55
[~2021-01-12] VITALS: Ht 154.9 cm; Wt 76.1 kg
[2021-01-12] MEDS ORDERED: NS 1,000 ML IV ONE ×2 (10:05→11:10)
[2021-01-12 10:36] LABS: BASO # 0.1 10^3/uL (0.0-0.2); BASO % 0.3 % (0.0-1.0); EOS % 0.1 % (0.0-3.0); HEMATOCRIT 42.7 % (36.0-47.0); HEMOGLOBIN 14.1 g/dl (12.0-15.5); LYMPH # 1.6 10^3/uL (1.5-5.0); LYMPH % 6.8 % (24.0-44.0); MEAN CORPUSCULAR HEMOGLOBIN 29.1 pg (27.0-33.0); MEAN CORPUSCULAR VOLUME 88.2 fl (80.0-96.0); NEUTROPHILS # 21.2 10^3/uL (1.5-8.5); NEUTROPHILS % 87.8 % (36.0-66.0); PLATELET COUNT, AUTOMATED 458 10^3/uL (150-450); RED BLOOD COUNT 4.84 10^6/uL (4.00-5.40); WHITE BLOOD COUNT 24.1 10^3/uL (4.0-10.0)
[2021-01-12] MEDS ORDERED: PIPERACILLIN/TAZOBACTAM SOD 4.5 GM in D5W MINI-BAG PLUS 50 ML IV ONE (10:45)
[2021-01-12] MEDS ORDERED: LIDOCAINE 2% 5ML JELLY UROJET TOP ONE (10:45)
[2021-01-12] MEDS ORDERED: METO1TAB32 PO (10:46)
[2021-01-12] MEDS ORDERED: LISI10TA22 PO (10:46)
[2021-01-12] MEDS ORDERED: IBUP80TA PO (10:47)
[2021-01-12] MEDS ORDERED: ONDANSETRON 4MG/2ML VIAL IV ONE (10:50)
[2021-01-12] MEDS ORDERED: CHARCOAL ACTIVATED LIQUID 25 GM/120 ML BTL PO ONE (10:50)
[2021-01-12] MEDS ORDERED: MAG SULF 1GM/100ML (MAG RUN) 1 GM in IV 1 EA IV ONE ×2 (10:50→12:00)
[2021-01-12 10:59] LABS: HCG, SERUM QUALITATIVE NEGATIVE (NEGATIVE)
--- NOTE | 2021-01-12 11:03 | REP ---
INDICATION: od. COMPARISON: 09/29/2001. TECHNIQUE: Portable AP chest with the patient upright. FINDINGS: The lung robb are clear. Cardiac size is normal. The lynn, mediastinum and skeletal structures are unremarkable. IMPRESSION: Essentially negative portable chest <Electronically signed by Seamus Rincon > 01/12/21 1100
[2021-01-12] MEDS ORDERED: DOPamine 400 MG/500 ML BAG IN D5W (800MCG/ML) (J1265) As Ordered ONE ×2 (11:06→14:12)
[2021-01-12] MEDS ORDERED: DOPamine HCL 400 MG in IV 1 EA IV SCH (11:06)
[2021-01-12] MEDS ORDERED: GLUCAGON INJ 1MG VIAL IV STA (11:06)
[2021-01-12 11:15] LABS: AMPHETAMINES LEVEL URINE POSITIVE (NEGATIVE); BARBITURATES URINE NEGATIVE (NEGATIVE); BENZODIAZEPINES URINE NEGATIVE (NEGATIVE); CANNABINOIDS URINE NEGATIVE (NEGATIVE); COCAINE METABOLITE URINE NEGATIVE (NEGATIVE); METHADONE URINE NEGATIVE (NEGATIVE); OPIATES URINE POSITIVE (NEGATIVE); PHENCYCLIDINE URINE NEGATIVE (NEGATIVE)
[2021-01-12 11:26] LABS: ACETAMINOPHEN LEVEL < 2.0 UG/ML (10.0-30.0); ALBUMIN 4.3 GM/DL (3.2-5.2); ALT/SGPT 34 U/L (12-78); BILIRUBIN,DIRECT 0.2 MG/DL (0.0-0.2); BILIRUBIN,TOTAL 0.4 MG/DL (0.2-1.0); BLOOD UREA NITROGEN 19 MG/DL (7-18); CALCIUM LEVEL 9.2 MG/DL (8.5-10.1); CARBON DIOXIDE LEVEL 22 MEQ/L (21-32); CHLORIDE LEVEL 106 MEQ/L (98-107); CK-MB VALUE MASS 5.9 NG/ML (<3.6); CPK CREATINE PHOSPHOKINASE 328 U/L (26-192); CREATININE FOR GFR 1.79 MG/DL (0.55-1.30); ETHYL ALCOHOL (ETHANOL) < 0.003 % (0.000-0.010); GLOMERULAR FILTRATION RATE 35.4 (>60); GLUCOSE, FASTING 139 MG/DL (70-100); MAGNESIUM LEVEL 2.5 MG/DL (1.8-2.4); PHOSPHORUS LEVEL 3.8 MG/DL (2.5-4.9); POTASSIUM SERUM 4.3 MEQ/L (3.5-5.1); SALICYLATE LEVEL < 1.7 MG/DL (5.0-30.0); SODIUM LEVEL 140 MEQ/L (136-145); TOTAL PROTEIN 7.7 GM/DL (6.4-8.2); TROPONIN I < 0.02 NG/ML (< 0.10)
[2021-01-12 11:28] LABS: RSV AMPLIFICATION NEGATIVE (NEGATIVE)
[2021-01-12] MEDS ORDERED: DEXTROSE 50% 50 ML SYRINGE As Ordered ONE (11:59)
[2021-01-12] MEDS ORDERED: DEXTROSE 50% 50 ML SYRINGE IV ONE (12:00)
[2021-01-12] MEDS ORDERED: INSULIN REGULAR 100UNITS IN 0.9% SODIUM CHLORIDE 100ML IVBAG As Ordered ONE (12:00)
[2021-01-12] MEDS ORDERED: HumuLIN R (REGULAR) INSULIN (NovoLIN R) **100U/ML** PER UNIT IV ONE (12:00)
[2021-01-12] MEDS ORDERED: ATROPINE SULF 1MG/10ML SYRINGE (J0461) IV STA (12:03)
[2021-01-12] MEDS ORDERED: NOREPINEPHRINE 4 MG/4 ML AMP As Ordered ONE (12:11)
[2021-01-12] MEDS: NOREPINEPHRINE BITARTRATE 8 MG in D5W 492 ML IV SCH ×2 (12:15→21:20)
[2021-01-12] MEDS ORDERED: FAT EMULSION 20% IV PRN (12:15)
[2021-01-12] MEDS ORDERED: NOREPINEPHRINE BITARTRATE 8 MG in D5W 492 ML IV SCH ×2 (12:25→14:30)
[2021-01-12] MEDS ORDERED: HYDR12CA PO (12:26)
[2021-01-12] MEDS ORDERED: FAT EMULSION 20% 500ML IV PRN (12:35)
[2021-01-12] MEDS: [UNRECOGNIZED DRUG - MIXTURE] IV SCH ×2 (13:02→18:43)
[2021-01-12] MEDS: NS IV SCH ×2 (13:04→20:09)
[2021-01-12] MEDS: INSULIN HUMAN REGULAR IV SCH ×2 (13:04→20:09)
--- NOTE | 2021-01-12 13:27 | REP ---
INDICATION: post procedure. COMPARISON: Portable chest earlier today. TECHNIQUE: Portable AP chest with the patient upright. FINDINGS: There is a right subclavian central venous catheter as an interval change. The catheter tip is in the right atrium in satisfactory position. There is no pneumothorax or pleural fluid collection. Lung robb are clear. Cardiac size is normal. The lynn, mediastinum, and skeletal structures are unremarkable. IMPRESSION: There has been interval placement of a right subclavian central venous catheter. There is no pneumothorax or pleural fluid collection. Otherwise, negative portable chest. <Electronically signed by Seamus Rincon > 01/12/21 [id number]
[2021-01-12] MEDS: DOPamine HCL 400 MG in IV 1 EA IV SCH ×3 (13:45→23:43)
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
[2021-01-12 14:20] LABS: RSV AMPLIFICATION NEGATIVE (NEGATIVE)
--- NOTE | 2021-01-12 16:00 | RO ---
OPERATIVE NOTE DATE OF OPERATION: 01/12/2021 PREOPERATIVE DIAGNOSIS: Hypotension. POSTOPERATIVE DIAGNOSIS: Hypotension. PROCEDURE: Insertion of triple lumen central venous catheter. SURGEON: Severo Hernandez MD ANESTHESIA: Local with 1% Xylocaine Site is right subclavian vein. Procedure was performed emergently, but verbal consent was obtained from the patient with multiple witnesses. DESCRIPTION OF PROCEDURE: After right subclavian area was prepped in the usual sterile manner, the area was anesthetized with 1% Xylocaine. The right subclavian vein was then cannulated. Using a modified Seldinger technique, a triple lumen central venous catheter was easily advanced. Good venous return was obtained from all three ports. Each port was then flushed. The line was then sutured in place and a sterile dressing applied. Chest x-ray done immediately post procedure shows no evidence of pneumothorax. The line is in good position. No complications noted.
[2021-01-12] MEDS: NS 1,000 ML IV SCH (16:21)
[2021-01-12] MEDS: ONDANSETRON 4MG/2ML VIAL IV SCH ×2 (16:21→19:30)
[2021-01-12 16:47] LABS: CALCIUM LEVEL 7.7 MG/DL (8.5-10.1); CREATININE FOR GFR 2.31 MG/DL (0.55-1.30); GLOMERULAR FILTRATION RATE 26.4 (>60); MAGNESIUM LEVEL 2.7 MG/DL (1.8-2.4); POTASSIUM SERUM 2.6 MEQ/L (3.5-5.1)
[2021-01-12] MEDS ORDERED: ATROPINE SULF 1MG/10ML SYRINGE (J0461) ONE (16:47)
[2021-01-12] MEDS: KCL 20MEQ IN 100ML SWI (KRUN) 20 MEQ in IV 1 EA IV SCH ×4 (17:08→18:22)
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
--- NOTE | 2021-01-12 18:53 | ECGEPIP ---
[facility] Test Date: 2021-01-12 Pat Name: FROYLAN FRANCOIS Department: Room: [place] [address] Gender: Female [employer]: franky : 1990 Requested By: GERARDO CERON Order Number: [id number] Reading MD: Milo Reyes Measurements Intervals [place] Rate: 65 P: 70 OR: 170 QRS: 63 QRSD: 106 T: 46 QT: 506 QTc: 526 Interpretive Statements Normal sinus rhythm possible left atrial enlargement Prolonged QTc interval similar to tracing done 1018 on same date Nonspecific ST-T wave abnormalities Electronically Signed on 01-12-2021 18:52:51 EDT by Milo Reyes
[2021-01-12 18:58] LABS: CALCIUM LEVEL 7.4 MG/DL (8.5-10.1); CREATININE FOR GFR 2.44 MG/DL (0.55-1.30); GLOMERULAR FILTRATION RATE 24.8 (>60); MAGNESIUM LEVEL 2.4 MG/DL (1.8-2.4); POTASSIUM SERUM 2.7 MEQ/L (3.5-5.1)
--- NOTE | 2021-01-12 19:22 | ECGEPIP ---
[facility] - ED Test Date: 2021-01-12 Pat Name: FROYLAN FRANCOIS Department: Room: - Gender: Female [employer]: : 1990 Requested By: Kenrick Huang Order Number: [id number] Reading MD: Kenrick Huang Measurements Intervals [place] Rate: 54 P: 74 IN: 170 QRS: 80 QRSD: 92 T: 56 QT: 522 QTc: 495 Interpretive Statements Sinus bradycardia Cannot rule out Anterior infarct , age undetermined Prolonged QTc Nonspecific ST T wave changes cw 02/01/19 rate decreased QTC prolonged now Electronically Signed on 01-12-2021 19:21:53 EDT by Kenrick Huang
[2021-01-12] MEDS ORDERED: SODIUM CHLORIDE 0.9% INJ 10 ML SYR IV PRN (20:40)
[2021-01-12 20:42] LABS: CALCIUM LEVEL 7.7 MG/DL (8.5-10.1); CREATININE FOR GFR 2.55 MG/DL (0.55-1.30); GLOMERULAR FILTRATION RATE 23.5 (>60); MAGNESIUM LEVEL 2.1 MG/DL (1.8-2.4); POTASSIUM SERUM 2.7 MEQ/L (3.5-5.1)
[2021-01-12] MEDS: ENOXAPARIN 40MG/0.4ML SYRINGE (J1650 PER 10MG) SC SCH (21:24)
[2021-01-12] MEDS ORDERED: PROCHLORPERAZINE 10MG/2ML VIAL (J0780 PER 1) IV PRN (22:10)
[2021-01-12] MEDS ORDERED: MECLIZINE 25 MG TABLET PO PRN (22:20)
[2021-01-12 22:27] LABS: CREATININE FOR GFR 2.55 MG/DL (0.55-1.30); GLOMERULAR FILTRATION RATE 23.5 (>60); MAGNESIUM LEVEL 2.2 MG/DL (1.8-2.4); POTASSIUM SERUM 2.6 MEQ/L (3.5-5.1)
[2021-01-12] MEDS ORDERED: VANCOMYCIN HCL 1,000 MG, VIAL MATE ADAPTER 1 EACH in NS 250 ML IV ONE (22:30)
[2021-01-12] MEDS ORDERED: VANCOMYCIN HCL 750 MG, VIAL MATE ADAPTER 1 EACH in NS 250 ML IV ONE ×6 (23:00)
[2021-01-13] VITALS (74 sets, daily range): BP systolic 83–122; BP diastolic 48–62
[2021-01-13] MEDS: [UNRECOGNIZED DRUG - MIXTURE] IV SCH ×5 (00:25→18:07)
[2021-01-13 00:39] LABS: CALCIUM LEVEL 7.6 MG/DL (8.5-10.1); CREATININE FOR GFR 2.35 MG/DL (0.55-1.30); GLOMERULAR FILTRATION RATE 25.9 (>60); PHOSPHORUS LEVEL 0.5 MG/DL (2.5-4.9); POTASSIUM SERUM 2.9 MEQ/L (3.5-5.1)
[2021-01-13 00:56] LABS: CALCIUM LEVEL 7.4 MG/DL (8.5-10.1); CREATININE FOR GFR 2.34 MG/DL (0.55-1.30); MAGNESIUM LEVEL 2.2 MG/DL (1.8-2.4); POTASSIUM SERUM 2.7 MEQ/L (3.5-5.1)
[2021-01-13] MEDS ORDERED: KCL 10MEQ/100ML SWI (KRUN) 10 MEQ in IV 1 EA IV ONE (01:00)
[2021-01-13] MEDS: NOREPINEPHRINE BITARTRATE 8 MG in D5W 492 ML IV SCH ×4 (02:17→19:07)
[2021-01-13] MEDS: KCL 20MEQ IN 100ML SWI (KRUN) 20 MEQ in IV 1 EA IV SCH ×20 (02:26→23:01)
[2021-01-13 02:34] LABS: CALCIUM LEVEL 6.9 MG/DL (8.5-10.1); CREATININE FOR GFR 2.38 MG/DL (0.55-1.30); GLOMERULAR FILTRATION RATE 25.5 (>60); MAGNESIUM LEVEL 2.1 MG/DL (1.8-2.4); POTASSIUM SERUM 2.8 MEQ/L (3.5-5.1)
[2021-01-13] MEDS: INSULIN HUMAN REGULAR IV SCH ×4 (03:02→23:00)
[2021-01-13] MEDS: NS IV SCH ×4 (03:02→23:00)
[2021-01-13] MEDS: PIPERACILLIN/TAZOBACTAM SOD 2.25 GM in D5W MINI-BAG PLUS 50 ML IV SCH ×2 (03:15→09:44)
[2021-01-13 04:33] LABS: CALCIUM LEVEL 6.8 MG/DL (8.5-10.1); CREATININE FOR GFR 2.19 MG/DL (0.55-1.30); PHOSPHORUS LEVEL 0.2 MG/DL (2.5-4.9); POTASSIUM SERUM 3.1 MEQ/L (3.5-5.1)
[2021-01-13] MEDS: DOPamine HCL 400 MG in IV 1 EA IV SCH ×4 (04:44→21:41)
[2021-01-13] MEDS ORDERED: SODIUM PHOSPHATE INJ 30 MMOL in D5W 500 ML IV ONE ×3 (06:00→18:00)
[2021-01-13 06:12] LABS: HEMATOCRIT 30.4 % (36.0-47.0); MEAN CORPUSCULAR HEMOGLOBIN 29.9 pg (27.0-33.0); MEAN CORPUSCULAR HGB CONC 35.9 g/dl (32.0-36.5); MEAN CORPUSCULAR VOLUME 83.3 fl (80.0-96.0); RED BLOOD COUNT 3.65 10^6/uL (4.00-5.40)
[2021-01-13 06:17] LABS: HEMOGLOBIN 10.9 g/dl (12.0-15.5); PLATELET COUNT, AUTOMATED 280 10^3/uL (150-450)
[2021-01-13] MEDS: CALCIUM GLUCONATE 1,000 MG in NS 100 ML IV SCH ×4 (06:27→17:25)
[2021-01-13 07:01] LABS: ALBUMIN 2.8 GM/DL (3.2-5.2); BILIRUBIN,TOTAL 0.6 MG/DL (0.2-1.0); CREATININE FOR GFR 2.12 MG/DL (0.55-1.30); GLOMERULAR FILTRATION RATE 29.1 (>60); POTASSIUM SERUM 3.8 MEQ/L (3.5-5.1); TOTAL PROTEIN 5.7 GM/DL (6.4-8.2)
[2021-01-13] MEDS ORDERED: ACETAMINOPHEN TAB 650MG DOSE (2X325MG) PO PRN (08:15)
[2021-01-13 09:37] LABS: HEMATOCRIT 30.6 % (36.0-47.0); HEMOGLOBIN 10.9 g/dl (12.0-15.5); MEAN CORPUSCULAR HEMOGLOBIN 29.9 pg (27.0-33.0); MEAN CORPUSCULAR HGB CONC 35.6 g/dl (32.0-36.5); MEAN CORPUSCULAR VOLUME 83.8 fl (80.0-96.0); PLATELET COUNT, AUTOMATED 244 10^3/uL (150-450); RED BLOOD COUNT 3.65 10^6/uL (4.00-5.40)
[2021-01-13 09:41] LABS: WHITE BLOOD COUNT 36.5 10^3/uL (4.0-10.0)
[2021-01-13] MEDS: NS 1,000 ML IV SCH ×2 (09:48)
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
[2021-01-13 10:05] LABS: CALCIUM LEVEL 7.3 MG/DL (8.5-10.1); CREATININE FOR GFR 1.97 MG/DL (0.55-1.30); GLOMERULAR FILTRATION RATE 31.7 (>60); PHOSPHORUS LEVEL 1.6 MG/DL (2.5-4.9); POTASSIUM SERUM 3.5 MEQ/L (3.5-5.1)
--- NOTE | 2021-01-13 10:26 | IPN ---
PROGRESS NOTE DATE: 01/13/2021 SUBJECTIVE: Again attended [facility]. The patient has been examined and chart reviewed. This was done with the nurse at the bedside. She is now on continuous renal replacement therapy (CRRT) for progressive difficulties with electrolytes and renal function. She remains on both dopamine and Levophed, although we have been able to wean the rates. I have asked them to try weaning the dopamine first as that was really placed for heart rate support, currently her heart rate has generally been in the 90s to low 100s. T-max overnight 98.2, blood pressure 80 to 120 systolic, heart rate 70s to the 90s generally, respiratory rate 18 to 20 without accessory muscle use. She is currently on CRRT. Most laboratory show white blood cell count of 35,000, hemoglobin 10.9, platelet count 280,000. No differential. Sodium 130, potassium 3.8, chloride 102, Co2 19, BUN 19, creatinine 2.12, glucose 411. Calcium 7.0. Liver functions acceptable. PHYSICAL EXAMINATION: On examination, she is generally sedated, but intermittently almost agitated. Pupils are reactive. Sclerae clear. Trachea is midline. Chest clear to both auscultation and percussion. Symmetric chest expansion. No focal adventitious breath sounds identified. Tactile fremitus palpable throughout. Cardiac examination regular. No gallop. Peripheral pulses palpable. No evidence of edema. Abdomen is soft with active bowel sounds. No convincing organomegaly or masses. Extremities: No cyanosis or clubbing. Neurological: As outlined above. She moves all extremities. IMPRESSION: 1. Hypotension secondary to polypharmacy overdose. 2. Polypharmacy overdose, intentions unclear. 3. Renal failure on the basis of the above. RECOMMENDATIONS: At this point, she remains on the high dose insulin euglycemic therapy protocol for her overdose. She is also on continuous renal replacement therapy (CRRT). At this point, my hope is that we can began to wean some of her vasopressors, will start with the dopamine first. Her electrolytes are being managed by the nephrology service. At this point, she has adequate IV access. Certainly, if parenteral status allows, some liquids are acceptable from my standpoint. At this point, will proceed as outlined above. Also, deep venous thrombosis (DVT) prophylaxis per the primary service. My hope is as well the next 24 hours we can stop her insulin glucose drip as well. Will proceed as outline above. Further recommendations will be made in the progress record as new information becomes available
[2021-01-13] MEDS ORDERED: CALCIUM GLUCONATE 1,000 MG in NS 100 ML IV ONE ×4 (10:30→23:00)
--- NOTE | 2021-01-13 10:46 | ECGEPIP ---
[facility] Test Date: 2021-01-13 Pat Name: FROYLAN FRANCOIS Department: Room: [place] [address] Gender: Female Damage Adjuster: : 1990 Requested By: GERARDO CERON Order Number: [id number] Reading MD: Medardo Chaudhary Measurements Intervals [place] Rate: 75 P: 75 MD: 170 QRS: 82 QRSD: 102 T: 56 QT: 450 QTc: 502 Interpretive Statements Normal sinus rhythm Prominent precordial voltage with poor R wave progression and repolarization a abnormalities in keeping with left ventricular hypertrophy. Could not rule out prior septal injury. ST/T wave abnormalities more marked than 01/12/21 Clinical correlation advised Electronically Signed on 01-13-2021 10:45:38 EDT by Medardo Chaudhary
--- NOTE | 2021-01-13 11:45 | ROOPDOC ---
[facility] Report Of Operation Report of Operation DATE OF PROCEDURE: 01/12/21 PREPROCEDURE DIAGNOSES: Acute poisoning, need for emergent dialysis access. POSTPROCEDURE DIAGNOSES: same. PROCEDURE: US guided insertion of left femoral dialysis access catheter. SURGEON: Zak Martin MD INSURANCE CLAIMS SPECIALIST: ANESTHESIA: local anesthesia with 1% lidocaine. ESTIMATED BLOOD LOSS: Approximately 10 mL. COMPLICATIONS: none. REMARKS: A 15 cm Schon dialysis catheter was placed. PROCEDURE NOTE: . DESCRIPTION OF PROCEDURE: . ZAK MARTIN MD Jan 13, 2021 11:45
[2021-01-13] MEDS ORDERED: VANCOMYCIN HCL 750 MG, VIAL MATE ADAPTER 1 EACH in NS 250 ML IV SCH (14:00)
[2021-01-13 15:52] LABS: CALCIUM LEVEL 7.6 MG/DL (8.5-10.1); CREATININE FOR GFR 1.36 MG/DL (0.55-1.30); GLOMERULAR FILTRATION RATE 48.6 (>60); PHOSPHORUS LEVEL 1.7 MG/DL (2.5-4.9); POTASSIUM SERUM 3.8 MEQ/L (3.5-5.1)
[2021-01-13] MEDS ORDERED: KCL 20MEQ IN 100ML SWI (KRUN) 20 MEQ in IV 1 EA IV ONE ×2 (16:30)
--- NOTE | 2021-01-13 17:08 | IPNPDOC ---
Text Note Date of Service The patient was seen on 01/13/21. NOTE Subjective: Patient seen at bedside today. Patient is oriented to place, time but patient is very drowsy with intermittent agitation and twitching. She is able to answer a few questions but mid-sentences she will be dozed off. She is currently on dopamine 20 MG and Levophed 14 MG with a blood pressure of 10 5/55mm hg, MAP > 65 and trying to gradually titrate down the medication. Objective: Physical exam: General: Patient is able to follow a few commands but is very drowsy and agitated. HEENT: Pupils round, equal and reactive to light. Clear sclera. Moist mucous membrane. Neck supple, no JVD distention. Respiratory: Clear breath sounds heard bilaterally. CVS: S1-S2 regular rate, no murmurs, gallops. Abdomen: Soft, positive bowel sounds, mild tenderness in the right upper quadrant. No organomegaly noted. Extremity: Patient reports having pain in bilateral hands which is present even prior to the admission as well. No clubbing, cyanosis or swelling. Neurological: Oriented to person, place and time. But very much drowsy with intermittent agitations. Able to follow a few commands. Able to move all extremities and no focal deficits. Assessment: 30 years old female patient with a history of hypertension was brought in by her due to polysubstance abuse [metoprolol, hydrochlorothiazide, lisinopril, amlodipine, ibuprofen, alcohol, opioids, THC] and in ED patient noted to be in acute kidney injury [ANDRE] Plan: polysubstance abuse: - Following high-dose insulin and euglycemic therapy(HIET) as per Poison Control Center. - Patient is getting insulin maintenance dose at 1 unit/KG/hour per protocol. - Will continue D50 at a rate of 60mls/hour. Goal is to maintain serum glucose more than 100 mg/dL per protocol. - On fat emulsion therapy as well per protocol. Hypotensive: - Patient is currently on 2 pressors. Levo fed 14 mcg and dopamine 20 mcg and will try to titrate it down. - She did tolerate well the titration down from 30 to 14. ANDRE: - She is currently getting CRRT ultrafiltration under the care of food service kitchen supervisor Dr. Swartz - We will avoid giving nephrotoxic drugs and QT prolongation medication. Hypokalemia: - Patient's hypokalemia is corrected now and her potassium level is 3.8 - Don't consider giving her any more K runs as her potassium level needs to be between 3-3.4 mEq/l per protocol. Leukocytosis: - Most likely patient is having reactive leukocytosis from stress from polysubstance abuse. DVT prophylaxis: - On Lovenox 40 mg subcutaneous. Poison Control Center was contacted to update the patient's condition. They recommended to follow the protocol and no additional recommendations at this point of time. VS,Fishbone, I+O VS, Fishbone, I+O Laboratory Tests 01/12/21 16:06 01/12/21 18:06 01/12/21 19:53 01/12/21 21:53 01/12/21 23:53 01/13/21 01:57 01/13/21 03:55 01/13/21 05:56 01/13/21 09:00 01/13/21 15:00 Vital Signs Date Time Temp Pulse Resp B/P (MAP) Pulse Ox O2 Delivery O2 Flow Rate FiO2 01/13/21 15:15 104 104/54 (71) 97 Room Air 01/13/21 12:00 98.8 24 01/12/21 15:15 2.0 I&O- Last 24 Hours up to 6 AM 01/13/21 06:00 Intake Total 79568.7 ml Output Total 779 ml Balance 9867.7 ml GME ATTESTATION GME ATTESTATION My faculty preceptor for this patient encounter was physically present during the encounter and was fully available. All aspects of the patient interview, examination, medical decision making process, and medical care plan development were reviewed and approved by the faculty preceptor. The faculty preceptor is aware and concurs with the plan as stated in the body of this note and will attest to such by his/her cosignature. ATTENDING NOTE I, Roldan Ayala MD, have independently examined this patient and performed my own physical exam, as well as reviewed the documentation and edited where necessary. I have discussed in detail with the resident / student the findings and plan of treatment as documented by the resident / student and edited their note. I agree with their findings and treatment plan and have edited their documentation. Prabha Haley MD Jan 13, 2021 17:07 ROLDAN AYALA MD Jan 17, 2021 15:02
[2021-01-13 20:53] LABS: HEMATOCRIT 27.2 % (36.0-47.0); HEMOGLOBIN 9.5 g/dl (12.0-15.5); MEAN CORPUSCULAR HEMOGLOBIN 29.5 pg (27.0-33.0); MEAN CORPUSCULAR HGB CONC 34.9 g/dl (32.0-36.5); MEAN CORPUSCULAR VOLUME 84.5 fl (80.0-96.0); PLATELET COUNT, AUTOMATED 156 10^3/uL (150-450); RED BLOOD COUNT 3.22 10^6/uL (4.00-5.40)
[2021-01-13] MEDS ORDERED: GI COCKTAIL 50ML BTL(HYOSCYAMINE/MAALOX/LIDOCAINE VISCOUS)(1:3:1) PO ONE (20:55)
[2021-01-13] MEDS: ENOXAPARIN 40MG/0.4ML SYRINGE (J1650 PER 10MG) SC SCH (21:24)
[2021-01-13 21:31] LABS: CALCIUM LEVEL 7.4 MG/DL (8.5-10.1); CREATININE FOR GFR 1.63 MG/DL (0.55-1.30); GLOMERULAR FILTRATION RATE 39.4 (>60); MAGNESIUM LEVEL 1.8 MG/DL (1.8-2.4); PHOSPHORUS LEVEL 3.3 MG/DL (2.5-4.9)
--- NOTE | 2021-01-13 21:55 | ECGEPIP ---
[facility] Test Date: 2021-01-12 Pat Name: FROYLAN FRANCOIS Department: Room: [place] [address] Gender: Female Alternative Financing Specialist: rio : 1990 Requested By: GERARDO CERON Order Number: [id number] Reading MD: Medardo Chaudhary Measurements Intervals [place] Rate: 80 P: 77 [place]: 168 QRS: 74 QRSD: 104 T: 67 QT: 496 QTc: 572 Interpretive Statements Normal sinus rhythm Left ventricular hypertrophy. Slow precordial R wave progression; could not rule out prior septal injury. Repolarization abnormalities appeared to be slightly more prominent than 01/12/21 Clinical correlation advised Electronically Signed on 01-13-2021 21:55:22 EDT by Medardo Chaudhary
[2021-01-13] MEDS ORDERED: VANCOMYCIN HCL 1,000 MG, VIAL MATE ADAPTER 1 EACH in NS 250 ML IV SCH (23:00)
[2021-01-14] VITALS (51 sets, daily range): BP systolic 97–136; BP diastolic 48–79
[2021-01-14] MEDS ORDERED: MAG SULF 1GM/100ML (MAG RUN) 1 GM in IV 1 EA IV ONE ×2
[2021-01-14] MEDS: KCL 20MEQ IN 100ML SWI (KRUN) 20 MEQ in IV 1 EA IV SCH ×6 (00:10→06:10)
[2021-01-14] MEDS: [UNRECOGNIZED DRUG - MIXTURE] IV SCH ×6 (00:23→23:08)
[2021-01-14] MEDS: DOPamine HCL 400 MG in IV 1 EA IV SCH ×5 (02:36→22:16)
[2021-01-14 03:32] LABS: CALCIUM LEVEL 7.5 MG/DL (8.5-10.1); CREATININE FOR GFR 1.31 MG/DL (0.55-1.30); GLOMERULAR FILTRATION RATE 50.7 (>60); MAGNESIUM LEVEL 2.2 MG/DL (1.8-2.4); PHOSPHORUS LEVEL 2.3 MG/DL (2.5-4.9); POTASSIUM SERUM 3.4 MEQ/L (3.5-5.1)
[2021-01-14] MEDS ORDERED: CALCIUM GLUCONATE 1,000 MG in NS 100 ML IV ONE (04:30)
[2021-01-14] MEDS: NOREPINEPHRINE BITARTRATE 8 MG in D5W 492 ML IV SCH (04:31)
[2021-01-14] MEDS: INSULIN HUMAN REGULAR IV SCH (04:56)
[2021-01-14] MEDS: NS IV SCH (04:56)
[2021-01-14] MEDS ORDERED: NS 1,000 ML IV ONE (06:45)
[2021-01-14] MEDS ORDERED: SODIUM PHOSPHATE INJ 15 MMOL in D5W 250 ML IV ONE (07:30)
[2021-01-14 09:38] LABS: HEMATOCRIT 27.6 % (36.0-47.0); HEMOGLOBIN 9.5 g/dl (12.0-15.5); MEAN CORPUSCULAR HGB CONC 34.4 g/dl (32.0-36.5); MEAN CORPUSCULAR VOLUME 87.1 fl (80.0-96.0); PLATELET COUNT, AUTOMATED 150 10^3/uL (150-450); RED BLOOD COUNT 3.17 10^6/uL (4.00-5.40); WHITE BLOOD COUNT 16.7 10^3/uL (4.0-10.0)
--- NOTE | 2021-01-14 09:59 | IPN ---
PROGRESS NOTE DATE: 01/13/2021 SUBJECTIVE: The patient was seen and examined at the bedside today morning in the ICU. She was started on CVVHDF last night. Clinically, she is slightly better today as compared with yesterday. Her Dopamine was being weaned off and she was on Dopamine 10 mcg in the morning when I saw her and her Levophed has also been weaned down to 14 mcg in the morning. She was also starting to make urine and she was making more than 100 ccs of urine in the morning which was very dilute, light colored ATN urine. She continues to be on insulin and dextrose drip. Cultures are negative so far. Patient was awake and was answering very few questions. We are not putting any fluid during CVVHDF and she is tolerating the CVVHD so far very well. OBJECTIVE: VITAL SIGNS: When I saw her in the morning her temperature was 98.8 degrees Fahrenheit, blood pressure was 94/50, pulse was 104, respiratory rate of 24, saturating 97% on room air. INTAKE AND OUTPUT: So far, by the time I saw her in the morning she was 4.7 liters positive according to CVVHDF. She was starting to make urine and she was making around 100 ccs of urine in the morning. Weight on the bed scale is 78.8 kg. GENERAL: Patient is drowsy, sleepy, answers very few questions. She does not like the light. Her eyes are covered with the sheet. HEAD AND NECK: Pupils are equally round and reactive to light. Mucous membranes are moist. Neck is supple. She has a right subclavian triple lumen catheter. CARDIOVASCULAR: S1 and S2, tachycardia. No edema of the bilateral lower extremities. RESPIRATORY: Chest is clear to auscultation bilaterally. Bilateral equal air entry. No rales or rhonchi. ABDOMEN: Soft, positive bowel sounds. Mildly tender to palpation in the right lower quadrant and left lower quadrant. GENITOURINARY: She has an indwelling Vigil catheter. She is making a good amount of urine and it is very light in color which looks like a post ATN diuresis. MUSCULOSKELETAL: No clubbing or cyanosis. Pulses are 2+. SKIN: No rashes or ulcers. No needle tracks were noted. PACKING AND WRAPPING SUPERVISOR: Patient is able to answer a few questions but she has photophobia at this time. LABORATORY DATA: CBC showed a WBC of 36.5, hemoglobin 10.9, platelets are 244,000. BMP showed a sodium of 140, potassium of 3.8, chloride 108, bicarbonate 24. BUN of 10, creatinine of 1.36. Glucose 248, calcium 7.6. Ionized calcium 4.4. Phosphorus 1.7. Magnesium was 2. Microbiology: Cultures are negative so far. CURRENT INPATIENT MEDICATIONS: Patient's medications were all reviewed by myself. She is getting IV electrolyte repletion according to CVVHDF protocol. Dopamine and Levophed are being weaned off. IV antibiotics have been stopped by the medical team now. She continues to be on insulin and dextrose protocol. ASSESSMENT AND PLAN: 1. Acute renal failure. Patient was oliguric last night. She was emergently started on CVVHDF. The patient is non-oliguric at this time making very dilute post ATN urine now. However, I will continue the patient at this time to maintain her acid based status and electrolytes and help her recover from polysubstance overdose once pressors are weaned off, hopefully I should be able to stop the CVVHDF over the next 24 hours. 2. Shock, most likely secondary to polypharmacy overdose, specifically beta blockers and calcium channel blockers. The patient is on Dopamine and Levophed which is being weaned off. Cultures are negative so far, empiric antibiotics have been stopped. 3. Beta queenie and calcium channel queenie overdose. Metoprolol is easily dialyzed through CVVHDF, however calcium channel queenie is not very well dialyzed and there is no data available, at this point the patient is on insulin and dextrose protocol. Blood pressures are stable and we are able to slowly wean off the pressors. 4. Hypokalemia. Patient is getting IV KCl according to the CVVHDF protocol. 5. Hypocalcemia, continue IV calcium gluconate according to the protocol. 6. Hypophosphatemia. Dose of the CVVHDF has been decreased and phosphorus is being repleted according to protocol. 7. Leukocytosis, cultures are negative so far. Empiric antibiotics have been stopped, most likely stressed induced. Repeat lactic acid will be checked in the morning. An echocardiogram result is pending. Patient denies any history of IV drug abuse. Total critical care time spent in the management of this patient today morning in the ICU excluding all the procedures was 40 minutes.
[2021-01-14 10:11] LABS: CALCIUM LEVEL 7.8 MG/DL (8.5-10.1); CREATININE FOR GFR 1.32 MG/DL (0.55-1.30); GLOMERULAR FILTRATION RATE 50.3 (>60); PHOSPHORUS LEVEL 2.8 MG/DL (2.5-4.9); POTASSIUM SERUM 3.4 MEQ/L (3.5-5.1)
--- NOTE | 2021-01-14 10:59 | ECHO ---
DATE OF PROCEDURE: 01/13/2021 Age: 30 Gender: Female Height: 61 inches Weight: 156 pounds Body Surface Area: 1.7 m2 PATIENT LOCATION: Inpatient ICU Room 3206. REFERRING PHYSICIAN: Dr. Sara Swartz. INDICATION: Sepsis. MEASUREMENTS: 2D Measurements: RV 4.3 cm LV 4.3 cm Septum 1.2 cm Posterior wall 1.2 cm Aortic Root 2.9 cm LA 3.8 cm LVEF 75-80% Doppler Measurements: AV 1.72 m/s LVOT 1.37 m/s LVOT diameter 1.8 cm MV-E 116, A 91, EA ratio 1.3 Early mitral deceleration time 158 msec E prime medial 14.4, A prime medial 10.6, E prime lateral 15.6 Average E/E prime ratio 7.7/PCWP 11.5 mmHg PV 1.0 m/s Pulmonary artery acceleration time 108 msec RVSP 34 mmHg IVC - 1.5 cm COMMENTS: Sinus tachycardia without intraventricular conduction disturbance. Somewhat technically challenging study, but diagnostically useful information was still obtained. M-mode and 2-dimensional echocardiography was performed with pulse, continuous wave, color flow, and tissue Doppler studies. Borderline concentric left ventricular hypertrophy with hyperkinetic wall motion. Left atrial size upper limits of normal with currently normal Doppler assessment of LV diastolic function and estimated mean left atrial pressure. Slightly dilated right heart chambers with normal wall motion and Doppler evidence of mild pulmonary hypertension. Normal IVC size and collapse against an elevated central venous pressure. Normal aortic dimensions. Normal appearing aortic valve and function. Normal appearing mitral valve with no inflow tract obstruction and only very mild physiologic insufficiency. Normal appearing tricuspid valve with very mild insufficiency (physiologic). No apparent intracardiac mass or pericardial effusion. MTDD
[2021-01-14] MEDS ORDERED: KCL 20MEQ IN 100ML SWI (KRUN) 20 MEQ in IV 1 EA IV ONE ×4 (11:00→17:20)
[2021-01-14] MEDS ORDERED: GABAPENTIN 100 MG CAP PO ONE (11:15)
[2021-01-14] MEDS ORDERED: DEXTROSE 50% 50 ML SYRINGE As Ordered ONE (14:05)
[2021-01-14] MEDS ORDERED: GLUCAGON INJ 1MG VIAL SC PRN (14:10)
[2021-01-14] MEDS ORDERED: GLUCOSE 4GM CHEW TABLET PO PRN (14:10)
[2021-01-14] MEDS: DEXTROSE 50% 50 ML SYRINGE IV PRN ×2 (14:11→15:07)
[2021-01-14 14:47] LABS: ALBUMIN 2.8 GM/DL (3.2-5.2); BILIRUBIN,TOTAL 0.5 MG/DL (0.2-1.0); CALCIUM LEVEL 8.5 MG/DL (8.5-10.1); CREATININE FOR GFR 1.46 MG/DL (0.55-1.30); GLOMERULAR FILTRATION RATE 44.8 (>60); MAGNESIUM LEVEL 2.1 MG/DL (1.8-2.4); PHOSPHORUS LEVEL 2.6 MG/DL (2.5-4.9); POTASSIUM SERUM 3.7 MEQ/L (3.5-5.1); TOTAL PROTEIN 5.4 GM/DL (6.4-8.2)
[2021-01-14] MEDS ORDERED: DEXTROSE 50% 50 ML VIAL IV SCH (14:55)
[2021-01-14] MEDS ORDERED: [UNRECOGNIZED DRUG - MIXTURE] IV SCH (16:00)
[2021-01-14] MEDS ORDERED: CALCIUM CARBONATE 500 MG CHEW U/D PO PRN (16:45)
[2021-01-14] MEDS ORDERED: ONDANSETRON 4MG/2ML VIAL IV STA (16:45)
[2021-01-14] MEDS ORDERED: ONDANSETRON 4MG/2ML VIAL As Ordered ONE (16:49)
[2021-01-14] MEDS ORDERED: ONDANSETRON 4MG/2ML VIAL IV PRN (17:40)
--- NOTE | 2021-01-14 18:02 | IPNPDOC ---
Text Note Date of Service The patient was seen on 01/14/21. NOTE Subjective: Patient was seen and examined at bedside. She is drowsy but easy arousal. She denies having nausea, vomiting, chest pain, abdominal pain. She still reports having some pain in her bilateral hands. Today on questioning she reports that each of her pill bottles have more than 20 pills in each. She is off the CRRT this morning. She is off of pressors as well. Today we will try to wean her down on her insulin gradually as per the protocol. Objective: Physical exam: Gen.: Patient is alert oriented 3, but drowsy. No acute distress. Cardiac: S1-S2 regular rate, no murmurs appreciated Respiratory: Clear breath sounds heard bilaterally, no rhonchi, no wheezes. Abdomen: Soft, positive bowel sounds, no tenderness on palpation. Extremities: Patient still reports to have hand pain in the bilateral. Assessment: 30 years old female patient with a history of hypertension was brought in by her due to polysubstance abuse [metoprolol, hydrochlorothiazide, lisinopril, amlodipine, ibuprofen, alcohol, opioids, THC] and in ED patient noted to be in acute kidney injury [ANDRE]. Plan: Polysubstance abuse: - Following high-dose insulin and euglycemic therapy as per poison control. - Patient is off of her pressors, will try to gradually decrease her insulin and stop it today. - Will closely monitor her potassium level. As discontinuation of insulin which can due to hyperkalemia. - Will keep a close watch on her glucose level as well. - Patient CRRT is stopped today morning at 6:30. She is able to make urine about 300 mls/hr. - Tomorrow we will consider getting an psychiatric consultation. - Patient is tachycardic which is a sign that she is improving from her CCB intoxication Hypotensive: - Patient is off of pressors, and her blood pressure is being maintained at systolic 100 and above. Leukocytosis: - Patient white count is improving WBC today 16.7, came down from 36.5 yesterday. - Likely patient is having reactive leukocytosis and not infectious. - For the same reason antibiotics were discontinued. Hypokalemia: - Patient's potassium is 3.4, as per the protocol her potassium is to be maintained between 3-3.4 - Will keep a close watch on her potassium as we discontinue the insulin. DVT prophylaxis: Lovenox 40 mg subcutaneous. VS,Fishbone, I+O VS, Fishbone, I+O Laboratory Tests 01/13/21 15:00 01/13/21 20:45 01/14/21 02:54 Vital Signs Date Time Temp Pulse Resp B/P (MAP) Pulse Ox O2 Delivery O2 Flow Rate FiO2 01/14/21 09:00 114 18 120/59 (79) 97 Room Air 01/14/21 08:00 99.7 01/12/21 15:15 2.0 I&O- Last 24 Hours up to 6 AM 01/14/21 06:00 Intake Total 6081.0 ml Output Total 7427 ml Balance -1346.0 ml GME ATTESTATION GME ATTESTATION My faculty preceptor for this patient encounter was physically present during the encounter and was fully available. All aspects of the patient interview, ex amination, medical decision making process, and medical care plan development were reviewed and approved by the faculty preceptor. The faculty preceptor is aware and concurs with the plan as stated in the body of this note and will attest to such by his/her cosignature. ATTENDING NOTE I, Roldan Ayala MD, have independently examined this patient and performed my own physical exam, as well as reviewed the documentation and edited where necessary. I have discussed in detail with the resident / student the findings and plan of treatment as documented by the resident / student and edited their note. I agree with their findings and treatment plan and have edited their docum entation. Prabha Haley MD Jan 14, 2021 10:51 ROLDAN AYALA MD Jan 17, 2021 15:02
--- NOTE | 2021-01-14 20:03 | IPN ---
NEPHROLOGY PROGRESS NOTE DATE: 01/14/2021 SUBJECTIVE: The patient was seen and examined at the bedside today morning in the ICU. Last 24-hour events are noted. Levophed and Dopamine have been weaned off. The patient is making a very good amount of urine, more than 100 mL an hour. 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 The patient's insulin and IV dextrose is slowly being weaned off by the Medical Team now. Blood pressures are staying steady, however she is still tachycardic at this time. OBJECTIVE: VITAL SIGNS: Temperature is 99.4 degrees Fahrenheit, blood pressure is 132/78, pulse is 111, respiratory rate of 18, saturating 100% on room air. INTAKE AND OUTPUT: Urine output recorded as 4.1 liters so far. CRRT ultrafiltration is 543 mL. Weight in the bed scale is 82.5 kg. PHYSICAL EXAMINATION: GENERAL APPEARANCE: The patient is drowsy but easily arousable. She answers questions. HEAD AND NECK: She has puffiness around the eyes. Neck is supple. She has a right subclavian triple lumen catheter. CARDIOVASCULAR: S1, S2, tachycardia. EXTREMITIES: Puffiness of lower extremities and upper extremities was noted. RESPIRATORY: Chest is clear to auscultation bilaterally. Bilaterally currently no rales or rhonchi. ABDOMEN: Soft, positive bowel sounds, nontender, no organomegaly was noted. GENITOURINARY: She has an indwelling Vigil catheter. MUSCULOSKELETAL: No clubbing, no cyanosis. Pulses are 2+. The patient has left groin non tunneled dialysis catheter. 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 LAB REVIEW: CBC showed a WBC count of 16.7, hemoglobin 9.5, platelet count 150. BMP showed a sodium of 144, potassium 3.7, chloride 113, bicarbonate 26, BUN 5, creatinine is 1.4. Glucose was 32, calcium 8.5, phosphorous 2.6, magnesium 2.1. AST 19, ALT 42, alkaline phosphatase is 89. Albumin is 2.8. CURRENT INPATIENT MEDICATIONS: The patient's medications were all reviewed by myself. Because of low potassium level, I ordered one dose of IV potassium chloride 20 mEq. Dopamine and Levophed have been stopped. Insulin drip is being weaned off slowly. ASSESSMENT AND PLAN: 1. Acute renal failure - The patient is non oliguric at this time. CVVHDF was stopped in the morning. Continue to monitor for renal recovery. Acid base level is within the acceptable range. Electrolytes are being monitored and repleted as needed. 2. Beta queenie and calcium channel queenie overdose - The patient is off the pressors now. Insulin therapy is being slowly weaned off. The patient's blood pressures are stable, however she is still tachycardic. 3. Hypoglycemia it is secondary to the use of insulin. Dextrose drip adjustment is as per the Medical Team. 4. Hypokalemia - The patient was given 20 mEq of IV KCL. She will be given oral KCL as well if she can tolerate oral feeding.
--- NOTE | 2021-01-14 22:02 | ECGEPIP ---
[facility] Test Date: 2021-01-14 Pat Name: FROYLAN FRANCOIS Department: Room: [place] [address] Gender: Female Community Service Specialist: NANNETTE : 1990 Requested By: JESSIE EISENBERG Order Number: [id number] Reading MD: Medardo Chaudhary Measurements Intervals [place] Rate: 104 P: 65 WV: 134 QRS: 64 QRSD: 92 T: -63 QT: 338 QTc: 444 Interpretive Statements Sinus tachycardia LA conduction disturbance Poor precordial R wave progression with prominent voltages and inferior apical ST/T wave abnormalities; probable LVH. Could not rule out prior septal infarction with aneurysm. Faster rate and slightly increased ST/T wave abnormality from previous day. Clinical correlation advised Electronically Signed on 01-14-2021 22:02:06 EDT by Medardo Chaudhary
[2021-01-14] MEDS: ENOXAPARIN 40MG/0.4ML SYRINGE (J1650 PER 10MG) SC SCH (22:24)
[2021-01-15] VITALS (23 sets, daily range): BP systolic 124–150; BP diastolic 70–89
[2021-01-15] MEDS: DOPamine HCL 400 MG in IV 1 EA IV SCH ×5 (03:11→21:04)
[2021-01-15 04:36] LABS: HEMATOCRIT 30.6 % (36.0-47.0); HEMOGLOBIN 10.3 g/dl (12.0-15.5); MEAN CORPUSCULAR HEMOGLOBIN 29.8 pg (27.0-33.0); MEAN CORPUSCULAR HGB CONC 33.7 g/dl (32.0-36.5); MEAN CORPUSCULAR VOLUME 88.4 fl (80.0-96.0); PLATELET COUNT, AUTOMATED 191 10^3/uL (150-450); RED BLOOD COUNT 3.46 10^6/uL (4.00-5.40); WHITE BLOOD COUNT 19.6 10^3/uL (4.0-10.0)
[2021-01-15 05:17] LABS: ALBUMIN 2.5 GM/DL (3.2-5.2); BILIRUBIN,TOTAL 0.3 MG/DL (0.2-1.0); CALCIUM LEVEL 8.2 MG/DL (8.5-10.1); CREATININE FOR GFR 1.71 MG/DL (0.55-1.30); GLOMERULAR FILTRATION RATE 37.3 (>60); POTASSIUM SERUM 4.3 MEQ/L (3.5-5.1); TOTAL PROTEIN 5.2 GM/DL (6.4-8.2)
[2021-01-15] MEDS: [UNRECOGNIZED DRUG - MIXTURE] IV SCH (07:47)
[2021-01-15 08:39] LABS: PHOSPHORUS LEVEL 2.9 MG/DL (2.5-4.9)
[2021-01-15] MEDS: METOPROLOL TART 12.5 MG PER 1/2 TAB PO SCH ×2 (11:25→21:07)
--- NOTE | 2021-01-15 16:37 | IPNPDOC ---
Text Note Date of Service The patient was seen on 01/15/21. NOTE Subjective: Patient seen and examined at bedside. Patient is doing much better today able to have a conversation with her. She is less drowsy. She reports having some nausea history the night and was given Zofran. Today morning she feels much better denies having any nausea, vomiting, abdominal pain. She reports having some mild throat and chest pain from vomiting overnight night. On further questioning why she did what she did she says she made some bad choices on the influence of alcohol but denies having any suicidal thoughts. She was started on oral diet yesterday afternoon but did not have much for her dinner. She is still on D50 until she is has a full meal and her sugar levels are stable. Objective: Physical exam Gen.: Patient is alert oriented 3, and less drowsy. No acute distress. Cardiac: S1-S2 regular, no murmurs appreciated Respiratory: Clear bilateral breath sounds, no wheezes or rhonchi heard. Abdomen: Soft, positive bowel sounds heard, no tenderness to palpation. 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 Assessment: 30-year-old female patient with a history of hypertension was brought in by the due to polysubstance abuse [metoprolol, Dyazide, lisinopril, amlodipine, ibuprofen, alcohol, or., THC]. Poison control was contacted and was given a full treatment of high-dose insulin euglycemic therapy. Plan: Polysubstance abuse: - Since insulin was discontinued yesterday and started on oral diet, but she was taking only minimal oral intake so she is still on D50 at 60 mls/hr. - Will continue her oral intake and see if she is able to take him off and gradually decreased to D50 to D10 and eventually discontinued for sugar levels are stable. - Patient is having some nausea and she is getting meclizine and Zofran as needed. - Once patient is off of dextrose and stable sugars, will consider a psych consultation tomorrow. Hypotension - Today her blood pressure is stable and is actually higher. - Given that all drugs are out of her system her blood pressure today is 150/82 mm hg. Will restart her on metoprolol tartrate 12.5 MG twice a day. Leukocytosis: - Patient's white blood cell count is gradually coming down her white count today is 19.6 DVT prophylaxis: Lovenox 40 mg subcutaneous VS,Fishbone, I+O VS, Fishbone, I+O Laboratory Tests 01/15/21 04:26 Vital Signs Date Time Temp Pulse Resp B/P (MAP) Pulse Ox O2 Delivery O2 Flow Rate FiO2 01/15/21 14:00 103 137/86 (103) 95 Room Air 01/15/21 12:08 99.7 17 01/12/21 15:15 2.0 I&O- Last 24 Hours up to 6 AM 01/15/21 06:00 Intake Total 4005 ml Output Total 4990 ml Balance -985 ml GME ATTESTATION GME ATTESTATION My faculty preceptor for this patient encounter was physically present during the encounter and was fully available. All aspects of the patient interview, examination, medical decision making process, and medical care plan development were reviewed and approved by the faculty preceptor. The faculty preceptor is aware and concurs with the plan as stated in the body of this note and will attest to such by his/her cosignature. ATTENDING NOTE I, Yonatan Ayala MD, have independently examined this patient and performed my own physical exam, as well as reviewed the documentation and edited where necessary. I have discussed in detail with the resident / student the findings and plan of treatment as documented by the resident / student and edited their note. I agree with their findings and treatment plan and have edited their documentation. Prabha Haley MD Jan 15, 2021 16:37 YONATAN AYALA MD Jan 17, 2021 15:07
[2021-01-15] MEDS: D10W 1,000 ML IV SCH (16:54)
[2021-01-15] MEDS: ENOXAPARIN 40MG/0.4ML SYRINGE (J1650 PER 10MG) SC SCH (21:07)
[2021-01-16] VITALS (17 sets, daily range): BP systolic 142–168; BP diastolic 80–101
[2021-01-16] MEDS: DOPamine HCL 400 MG in IV 1 EA IV SCH (02:03)
[2021-01-16] MEDS: D10W 1,000 ML IV SCH (04:04)
[2021-01-16 04:30] LABS: HEMATOCRIT 31.1 % (36.0-47.0); HEMOGLOBIN 10.5 g/dl (12.0-15.5); MEAN CORPUSCULAR HEMOGLOBIN 29.9 pg (27.0-33.0); MEAN CORPUSCULAR HGB CONC 33.8 g/dl (32.0-36.5); MEAN CORPUSCULAR VOLUME 88.6 fl (80.0-96.0); PLATELET COUNT, AUTOMATED 205 10^3/uL (150-450); RED BLOOD COUNT 3.51 10^6/uL (4.00-5.40)
[2021-01-16 04:57] LABS: ALBUMIN 2.6 GM/DL (3.2-5.2); BILIRUBIN,TOTAL 0.3 MG/DL (0.2-1.0); CALCIUM LEVEL 8.4 MG/DL (8.5-10.1); CREATININE FOR GFR 1.59 MG/DL (0.55-1.30); GLOMERULAR FILTRATION RATE 40.6 (>60); POTASSIUM SERUM 4.3 MEQ/L (3.5-5.1); TOTAL PROTEIN 5.7 GM/DL (6.4-8.2)
[2021-01-16] MEDS: METOPROLOL TART 12.5 MG PER 1/2 TAB PO SCH (07:41)
[2021-01-16 09:53] LABS: FOLATE 4.5 NG/ML (>5.4)
--- NOTE | 2021-01-16 10:16 | IPN ---
PROGRESS NOTE DATE: 01/15/2021 SUBJECTIVE: Patient was seen and examined at the bedside today morning. She is afebrile, is hemodynamically stable. She is much more awake and alert today. She is making a lot of urine, more than 100 ml of urine per hour. She is able to tolerate some liquid diet now. She is still requiring IV insulin drip because she developed hypoglycemia without insulin yesterday. OBJECTIVE: VITAL SIGNS: Temperature is 98.6 degrees Fahrenheit, blood pressure is 137/85, pulse is 92, respiratory rate is 18, saturating 97% on room air. INTAKE AND OUTPUT: Urine output recorded as 4.9 liters yesterday and 4.1 liters so far today since overnight. Weight on the bed scale is 80 kg. GENERAL: Patient is awake, alert and oriented x3, laying in bed, in no apparent distress. HEAD AND NECK: Patient has mild periorbital puffiness. Neck is supple. She has a right subclavian triple lumen catheter. CARDIOVASCULAR: S1 and S2, tachycardia. Trace edema on the bilateral lower extremities was noted. RESPIRATORY: Chest is clear to auscultation bilaterally. Bilateral equal air entry. No rales or rhonchi. ABDOMEN: Soft, positive bowel sounds, nontender. No organomegaly. GENITOURINARY: She has an indwelling Vigil catheter. MUSCULOSKELETAL: No clubbing or cyanosis. Pulses are 2+. She has left sided dialysis catheter in the groin. SECURITY CONSULTANT: No focal deficit. Power is 5/5 in all extremities. LABORATORY DATA: CBC showed a WBC of 19.6, hemoglobin 10.3, platelets 191,000. BMP today morning showed sodium of 139, potassium 4.3, chloride 106, bicarbonate 28, BUN 8, creatinine is 1.7, it was 1.4 yesterday. Glucose is 151. Albumin is 2.5. CURRENT INPATIENT MEDICATIONS: Patient's medications were all reviewed by myself. She continues to be on IV Dextrose infusion. She is no longer requiring any pressors. She has been started on metoprolol tartrate 12.5 mg p.o. twice a day. No other significant change in the medications today as compared with yesterday. ASSESSMENT AND PLAN: 1. Acute nonoliguric renal failure. Patient is having post ATN diuresis now. Since she was significantly volume overloaded there is no need for IV fluid hydration at this time. Continue to monitor for complete renal recovery. Acid base status is within the acceptable range. 2. Recent beta queenie and calcium channel queenie overdose. Patient is clinically stable. She is still requiring IV dextrose. She is off of all the other pressors and insulin at this time. 3. Tachycardia. Patient has been started on a low dose of metoprolol now. Tachycardia is getting better. 4. Hypoglycemia, patient is still on an IV dextrose drip. Oral intake is slowly improving. DISPOSITION: The patient's renal function is recovering. I do not anticipate that she will need further hemodialysis. Left sided groin catheter can be removed now and hopefully Vigil catheter will be removed tomorrow morning.
[2021-01-16] MEDS ORDERED: METOPROLOL TART 12.5 MG PER 1/2 TAB PO ONE (12:25)
--- NOTE | 2021-01-16 16:21 | IPNPDOC ---
Text Note Date of Service The patient was seen on 01/16/21. NOTE Subjective: Patient seen and examined at bedside. Patient is doing well today, she did start taking oral intake and was doing well. Reports her nausea has come down and no vomiting overnight. She denies having any any acute overnight events. After her breakfast and check her blood sugars will try to get her off of D10. Will place a psychiatric consultation today. Objective: Physical exam: Gen.: Patient is alert and oriented 3. No acute distress. Cardiac S1 and S2 heard regular, no murmurs. Respiratory: Bilateral clear breath sounds, no wheezes, no rhonchi heard. Abdomen: Soft no tenderness to palpation, positive bowel sounds. Extremities: Patient reports still having bilateral hand pain, and her child support agent on right hand has improved. Assessment: 30-year-old female patient with a history of hypertension was brought in by the due to polysubstance abuse [metoprolol, Dyazide, lisinopril, amlodipine, ibuprofen, alcohol, or., THC]. Poison control was contacted and was given a full treatment of high-dose insulin euglycemic therapy. Plan: Polysubstance abuse: - Patient is still getting D10 for now will try to DC it after she starts eating a full meal. - She reports her nausea has improved. - Psychiatric consultation in place, will appreciate his input and kathryn mmendations. Hypertensive: - Patient is having a blood pressure of 150-160 systolic. - Will increase the dose of metoprolol to 25 mg. - Given that the patient is on 4 blood pressure medications at home, we will evaluate for causes of secondary hypertension. - Will get an bilateral renal artery Doppler to rule out renal artery stenosis. Leukocytosis: Patient's WBC is gradually coming down WBC today is 18. DVT prophylaxis: Lovenox 40 mg subcutaneous. VS,Fishbone, I+O VS, Fishbone, I+O Laboratory Tests 01/16/21 04:15 Vital Signs Date Time Temp Pulse Resp B/P (MAP) Pulse Ox O2 Delivery O2 Flow Rate FiO2 01/16/21 12:49 126 164/88 01/16/21 12:00 98.1 20 97 Room Air 01/12/21 15:15 2.0 I&O- Last 24 Hours up to 6 AM 01/16/21 05:59 Intake Total 2210 ml Output Total 4325 ml Balance -2115 ml GME ATTESTATION GME ATTESTATION My faculty preceptor for this patient encounter was physically present during the encounter and was fully available. All aspects of the patient interview, examination, medical decision making process, and medical care plan development were reviewed and approved by the faculty preceptor. The faculty preceptor is aware and concurs with the plan as stated in the body of this note and will attest to such by his/her cosignature. ATTENDING NOTE I, Yonatan Ayala MD, have independently examined this patient and performed my own physical exam, as well as reviewed the documentation and edited where necessary. I have discussed in detail with the resident / student the findings and plan of treatment as documented by the resident / student and edited their note. I agree with their findings and treatment plan and have edited their documentation. Prabha Haley MD Jan 16, 2021 16:21 YONATAN AYALA MD Jan 17, 2021 15:09
--- NOTE | 2021-01-16 18:28 | MHCR ---
[facility] CONSULTATION DATE: 01/16/2021 IDENTIFYING DATA: She is a 30-year-old white female in intensive care unit (ICU), admitted for overdose of pills. Consult was called to evaluate her psychiatric assessment. Staff was consulted and patient was evaluated. She reports that she and her were drinking alcohol for fun, and she passed out and consumed some pills. She was not aware that she had consumed so many pills. Next day morning she was very drowsy, unable to get up. Her brought her to the hospital, and she was treated in intensive care unit (ICU). She reports it was an accidental overdose. Never attempted suicide. She has never seen any psychiatrists in the past and has never been on any psychotropic medications. She reports "I never wanted to . I love my children." Denies any vegetative symptoms of depression. Her relationship with her is good. MENTAL STATUS EXAMINATION: Patient is sitting in a bed neatly dressed in hospital gown, cooperative. Psychomotor activity is normal. Mood is euthymic. Affect is full range. Made good eye contact. Thought process linear, goal directed. Thought content: Denied any suicidal or homicidal ideas. No delusions. Perception: No hallucinations. Attention is good. Memory, immediate, remote, recent, is good. 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 PLAN: Patient can be discharged once medically cleared and can be given an appointment with a therapist.
[2021-01-16] MEDS: ENOXAPARIN 40MG/0.4ML SYRINGE (J1650 PER 10MG) SC SCH (20:38)
[2021-01-16] MEDS: METOPROLOL TART 25 MG TABLET PO SCH (20:38)
[2021-01-16] MEDS ORDERED: FOLIC ACID 1 MG TAB PO SCH (21:00)
--- NOTE | 2021-01-16 22:39 | IPN ---
NEPHROLOGY PROGRESS NOTE DATE: 01/16/2021 SUBJECTIVE: Patient was seen and examined at the bedside today morning. She is afebrile and hemodynamically stable. Her left groin dialysis catheter was removed yesterday. Vigil catheter was also removed today morning. She has a very good urine output. Her renal function is stable and gradually improving. Creatinine has improved to 1.5 today. OBJECTIVE: VITAL SIGNS: Temperature 98 degrees Fahrenheit, blood pressure 148/94, pulse 110, respiratory rate 19, saturating 97% on room air. INTAKE/OUTPUT: Urine output recorded as 4.1 liters yesterday and 3.3 liters so far today since overnight. Weight in the bed scale is 76.1 kg. PHYSICAL EXAMINATION: GENERAL: Patient is awake, alert and oriented x3, lying in bed in no apparent distress. HEAD/NECK: Extraocular muscles intact. Pupils equally round and reactive to light. Right subclavian TLC was noted. RESPIRATORY: Chest is clear to auscultation bilaterally. Bilateral equal air entry. No rales or rhonchi. CARDIOVASCULAR: S1, S2, regular rate. No edema of bilateral lower extremities. ABDOMEN: Soft, positive bowel sounds, nontender. No organomegaly. GENITOURINARY: Vigil catheter has been removed. MUSCULOSKELETAL: No clubbing or cyanosis. Pulses are 2+. 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 Power is 5/5 in all extremities. LAB REVIEW: CBC showed WBC 18, hemoglobin 10.5, platelets 205,000. BMP showed sodium 140, potassium 4.3, chloride 107, bicarb 30, BUN 15, creatinine 1.5; it was 1.7 yesterday, glucose 91. Calcium 8.4. B12 is 458. Folate 4.5. CURRENT INPATIENT MEDICATIONS: Patient's medications were all reviewed by myself. Dextrose has been stopped now. She has been started on folic acid 1 mg p.o. daily. She continues to be on Metoprolol, but dose has been increased to 25 mg p.o. twice a day. ASSESSMENT AND PLAN: 1. Acute renal failure: Patient's renal function is improving. She is having diuresis. She is able to hydrate herself when she was fluid overloaded as well. No need of I.V. fluid hydration at this time. 2. Tachycardia: It is getting better with use of Metoprolol. 3. Hypoglycemia: It has resolved now. I.V. Dextrose drip has been stopped. Patient is able to eat more food now. 4. Recent beta-queenie and calcium channel queenie overdose. Patient is clinically stable and improving. She is actually hypertensive now and for tachycardia, she has been started on low dose of beta-queenie. DISPOSITION: Patient's renal function is stable and improving. Electrolytes are within the acceptable range. Vigil catheter has been removed. Dialysis catheter has also been removed. Nephrology service is going to sign off at this moment. She will need to follow-up with nephrology service within two weeks after discharge from the hospital.
[2021-01-17 04:00] VITALS: BP 140/89
[2021-01-17 04:25] LABS: HEMATOCRIT 33.8 % (36.0-47.0); HEMOGLOBIN 11.6 g/dl (12.0-15.5); MEAN CORPUSCULAR HGB CONC 34.3 g/dl (32.0-36.5); MEAN CORPUSCULAR VOLUME 87.3 fl (80.0-96.0); PLATELET COUNT, AUTOMATED 281 10^3/uL (150-450); RED BLOOD COUNT 3.87 10^6/uL (4.00-5.40); WHITE BLOOD COUNT 16.9 10^3/uL (4.0-10.0)
[2021-01-17 04:57] LABS: ALBUMIN 2.9 GM/DL (3.2-5.2); BILIRUBIN,TOTAL 0.4 MG/DL (0.2-1.0); CALCIUM LEVEL 8.9 MG/DL (8.5-10.1); CREATININE FOR GFR 1.61 MG/DL (0.55-1.30); POTASSIUM SERUM 4.2 MEQ/L (3.5-5.1); TOTAL PROTEIN 7.1 GM/DL (6.4-8.2)
[2021-01-17 08:00] VITALS: BP 155/93
[2021-01-17 09:23] VITALS: BP 147/102
[2021-01-17] MEDS: METOPROLOL TART 25 MG TABLET PO SCH (09:23)
--- NOTE | 2021-01-17 09:27 | REP ---
INDICATION: HTN. COMPARISON: None. TECHNIQUE: Bilateral renal ultrasound followed by bilateral renal artery Doppler evaluation. FINDINGS: Bilateral renal ultrasound: The right kidney measures 12.2 x 5.4 x 5.2 cm. The left kidney measures 12.6 x 4.8 x 5.6 cm. The kidneys are normal size. Renal cortical echogenicity is normal bilaterally. There is no hydronephrosis, calculus, or solid mass on the right or the left. There is a 1.9 x 1.3 cm left renal Bosniak type 1 cyst. There is no right renal cyst. Bladder: With Doppler assessment there are bilateral ureteral jets. Incidentally a left ovarian 3.2 cm cyst is identified. Bilateral renal artery Doppler evaluation: Right renal artery: Peak renal artery flow velocity: 96.9 cm/S. Peak aortic flow velocity: 137.6 cm/S Renal-aortic ratio: 0.7 Resistive index: Upper pole 0.58, mid pole 0.60, lower pole 0.61 Acceleration time: Upper pole 0.025, mid pole 0.034, lower pole 0.036 Left Renal artery: Peak renal artery flow velocity: 80.6 cm/S. Peak aortic flow velocity: 137.6 cm/S Renal-aortic ratio: 0.5 Resistive index: Upper pole 0.51, mid pole 0.57, lower pole 0.57 Acceleration time: Upper pole 0.025, mid pole 0.036, lower pole 0.030 IMPRESSION: Bilateral renal ultrasound: The kidneys are normal size. There is a Bosniak type 1 left renal cyst. There is a 3.2 cm left ovarian cyst. Bilateral renal artery Doppler evaluation: The Doppler ultrasound indices are normal. There is no evidence of renal artery stenosis by Doppler ultrasound. <Electronically signed by Seamus Rincon > 01/17/21 [id number]
--- NOTE | 2021-01-17 09:44 | IPNPDOC ---
Text Note Date of Service The patient was seen on 01/17/21. NOTE Subjective: Patient seen and examined at bedside today. Patient is back to her baseline, feeling more hungry and able to take in oral intake. Denies having any nausea, vomiting, chest pain, abdominal pain. As having any acute overnight events. The psychiatrist just come and see her yesterday in the evening and recommended that she can go home with follow-up with the therapy. Her sugar levels are stable overnight after stopping the D10 yesterday evening. He is still hypertensive with systolics in 150s and tachycardic heart rate in 120s. Lowest heart rate she had was after metoprolol 25 mg and it was 91. Today she will be getting her renal ultrasound. Objective: Physical exam: Gen.: Patient is alert oriented 3, no acute distress. Cardiac: Regular rate and rhythm, S1-S2 heard, no murmur heard. Respiratory: Bilateral clear breath sounds no rhonchi no wheezes. Abdomen: Active bowel sounds, soft to palpation no tenderness noted. Extremities: Patient reports pain in her right hand has been decreased but still reports having pain in her left hand. He reports that tingling and numbing sensation in her hands, and tingling sensation passing down her forearm on palpation of her medial epicondyle. Assessment: 30-year-old female patient with a history of hypertension was brought in by the due to polysubstance abuse [metoprolol, Dyazide, lisinopril, amlodipine, ibuprofen, alcohol, or., THC]. Poison control was contacted and was given a full treatment of high-dose insulin euglycemic therapy. Plan: Polysubstance abuse: - Patient is off R D10 and her sugar levels are stable. - She is doing well today, denies having any complaints. - Psychiatric consultation was done and recommended outpatient follow-up with therapist. Hypertension and tachycardia: - Patient is having systolic blood pressures in her 150s. - Patient is tachycardic heart rate in 120s. - Patient is on metoprolol tartrate 25 mg twice a day. Her heart rate drops to lower 90s after the medication and last for about 5-6 hours. - She Will get her renal Doppler to look for renal artery stenosis. Leukocytosis: - Improving her WBC today is 16.9 Bilateral hand pain: - Patient reports to be having tingling sensation in bilateral hands prior to the admission and was supposed to be worked up outpatient. - On examination she is HAVING more of tingling sensation in her bilateral hands on flexion of her wrists and on palpation of the medial epicondyles she does report having tingling on the medial surface of her forearm possibly due to some inflammation around the medial epicondyles/medial epicondylitis. - She should be worked outpatient for nerve conduction study, if she consider getting surgery. DVT prophylaxis: - Lovenox 40 mg subcutaneous. VS,Fishbone, I+O VS, Fishbone, I+O Laboratory Tests 01/17/21 04:15 Vital Signs Date Time Temp Pulse Resp B/P (MAP) Pulse Ox O2 Delivery O2 Flow Rate FiO2 01/17/21 04:00 98.6 117 20 140/89 (106) 97 Room Air 01/12/21 15:15 2.0 I&O- Last 24 Hours up to 6 AM 01/17/21 06:00 Intake Total 1660 ml Output Total 2975 ml Balance -1315 ml GME ATTESTATION GME ATTESTATION My faculty preceptor for this patient encounter was physically present during the encounter and was fully available. All aspects of the patient interview, examination, medical decision making process, and medical care plan development were reviewed and approved by the faculty preceptor. The faculty preceptor is aw are and concurs with the plan as stated in the body of this note and will attest to such by his/her cosignature. ATTENDING NOTE I, Yonatan Ayala MD, have independently examined this patient and performed my own physical exam, as well as reviewed the documentation and edited where necessary. I have discussed in detail with the resident / student the findings and plan of treatment as documented by the resident / student and edited their note. I agree with their findings and treatment plan and have edited their documentation. Prabha Haley MD Jan 17, 2021 09:44 YONATAN AYALA MD Jan 17, 2021 15:16
[2021-01-17] MEDS ORDERED: METO1TAB87 PO (11:29)
[2021-01-17] MEDS ORDERED: HYDR12CA PO (12:19)
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
== END 2021-01-17 12:37 | disposition home or self-care (01) | DRG 812 ==
LOC: M ED 09:48 → M ED INP 13:19 → ENRESERV 14:54 → M ICU 15:34
PROVIDERS: ADMIT Neuromusculoskeletal Medicine & OMM; ATTEND Internal Medicine
PROC: 05H533Z Insertion of Infusion Device into Right Subclavian Vein, Percutaneous Approach (ICD-10-PCS; principal; 2021-01-12)
PROC: 5A1D90Z Performance of Urinary Filtration, Continuous, Greater than 18 hours Per Day (ICD-10-PCS; 2021-01-12)
PROC: 06HN33Z Insertion of Infusion Device into Left Femoral Vein, Percutaneous Approach (ICD-10-PCS; 2021-01-12)
DX: T44.7X1A Poisoning by beta-adrenoreceptor antagonists, accidental (unintentional), initial encounter (principal); N17.0 Acute kidney failure with tubular necrosis; R57.9 Shock, unspecified; I95.9 Hypotension, unspecified; E87.2 Acidosis; E83.42 Hypomagnesemia; E83.39 Other disorders of phosphorus metabolism; E83.51 Hypocalcemia; E87.6 Hypokalemia; R00.0 Tachycardia, unspecified; T50.2X1A Poisoning by carbonic-anhydrase inhibitors, benzothiadiazides and other diuretics, accidental (unintentional), initial encounter; T47.8X1A Poisoning by other agents primarily affecting gastrointestinal system, accidental (unintentional), initial encounter; T39.311A Poisoning by propionic acid derivatives, accidental (unintentional), initial encounter; T46.90 Poisoning by, adverse effect of and underdosing of unspecified agents primarily affecting the cardiovascular system; F10.14 Alcohol abuse with alcohol-induced mood disorder; F12.10 Cannabis abuse, uncomplicated; R00.1 Bradycardia, unspecified; R11.2 Nausea with vomiting, unspecified; Z20.822 Contact with and (suspected) exposure to COVID-19; Z79.899 Other long term (current) drug therapy

== ENCOUNTER → 2021-01-30 | Outpatient (CLI) | payer OTHER ==
[~2021-01-30] MED LIST changes: +HYDR12CA PO; +IBUP80TA PO; +LISI10TA22 PO; +METO1TAB32 PO; +METO1TAB87 PO
[2021-01-30 13:25] LABS: ALBUMIN 3.9 GM/DL (3.2-5.2); BLOOD UREA NITROGEN 19 MG/DL (7-18); CALCIUM LEVEL 10.1 MG/DL (8.5-10.1); CARBON DIOXIDE LEVEL 29 MEQ/L (21-32); CHLORIDE LEVEL 107 MEQ/L (98-107); CREATININE FOR GFR 0.89 MG/DL (0.55-1.30); GLOMERULAR FILTRATION RATE > 60.0 (>60); GLUCOSE, FASTING 84 MG/DL (70-100); POTASSIUM SERUM 4.2 MEQ/L (3.5-5.1); SODIUM LEVEL 140 MEQ/L (136-145)
== END ==
LOC: M LAB 11:33
PROVIDERS: ATTEND Internal Medicine Cardiovascular Disease
DX: I10 Essential (primary) hypertension (principal)

== ENCOUNTER → 2021-01-30 | Outpatient (CLI) | payer OTHER ==
[2021-01-30 12:50] LABS: BASO % 0.5 % (0.0-1.0); EOS % 0.5 % (0.0-3.0); HEMATOCRIT 32.9 % (36.0-47.0); HEMOGLOBIN 10.9 g/dl (12.0-15.5); LYMPH # 1.9 10^3/uL (1.5-5.0); LYMPH % 23.1 % (24.0-44.0); MEAN CORPUSCULAR HEMOGLOBIN 29.6 pg (27.0-33.0); MEAN CORPUSCULAR HGB CONC 33.1 g/dl (32.0-36.5); MEAN CORPUSCULAR VOLUME 89.4 fl (80.0-96.0); MONO # 0.5 10^3/uL (0.0-0.8); MONO % 6.4 % (2.0-8.0); NEUTROPHILS # 5.6 10^3/uL (1.5-8.5); NEUTROPHILS % 69.1 % (36.0-66.0); PLATELET COUNT, AUTOMATED 483 10^3/uL (150-450); RED BLOOD COUNT 3.68 10^6/uL (4.00-5.40); WHITE BLOOD COUNT 8.1 10^3/uL (4.0-10.0)
[2021-01-30 13:24] LABS: ALBUMIN 4.1 GM/DL (3.2-5.2); ALT/SGPT 25 U/L (12-78); BILIRUBIN,TOTAL 0.2 MG/DL (0.2-1.0); BLOOD UREA NITROGEN 20 MG/DL (7-18); CARBON DIOXIDE LEVEL 29 MEQ/L (21-32); CHLORIDE LEVEL 106 MEQ/L (98-107); CREATININE FOR GFR 0.87 MG/DL (0.55-1.30); GLOMERULAR FILTRATION RATE > 60.0 (>60); GLUCOSE, FASTING 83 MG/DL (70-100); POTASSIUM SERUM 4.2 MEQ/L (3.5-5.1); SODIUM LEVEL 140 MEQ/L (136-145); TOTAL PROTEIN 7.7 GM/DL (6.4-8.2)
== END ==
LOC: M LAB 11:30
PROVIDERS: ATTEND Nurse Practitioner Family
DX: N17.9 Acute kidney failure, unspecified (principal)

== ENCOUNTER 2021-05-01 21:50 | Emergency (ER) | payer OTHER ==
[~2021-05-01] VITALS: Ht 162.6 cm; Wt 70.3 kg
[2021-05-01] MEDS ORDERED: NORCO 5/325MG TABLET (BULK FOR ED) PO ONE (23:20)
[2021-05-01] MEDS ORDERED: BACTRIM 160MG/800MG DS TAB PO ONE (23:20)
[2021-05-01] MEDS ORDERED: BACT800T5 PO (23:27)
[2021-05-01] MEDS ORDERED: HYDR-3713 PO (23:27)
[2021-05-01 23:40] VITALS: BP 164/92
== END 2021-05-02 00:03 | disposition home or self-care (01) ==
LOC: M ED 21:50
DX: L02.414 Cutaneous abscess of left upper limb (principal); L03.114 Cellulitis of left upper limb; I10 Essential (primary) hypertension; Z79.899 Other long term (current) drug therapy

== ENCOUNTER 2021-07-21 11:42 | Emergency (ER) | payer OTHER ==
[~2021-07-21] VITALS: Ht 162.6 cm; Wt 70.9 kg
[~2021-07-21 11:42] MED LIST changes: +BACT800T5 PO; +HYDR-3713 PO
[2021-07-21] MEDS ORDERED: METOPROLOL TART 25 MG TABLET PO STA (14:03)
[2021-07-21] MEDS ORDERED: hydroCHLOROthiazide 12.5 MG CAPSULE PO STA (14:03)
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
[2021-07-21 15:33] LABS: BASO # 0.1 10^3/uL (0.0-0.2); BASO % 0.5 % (0.0-1.0); EOS # 0.1 10^3/uL (0.0-0.5); EOS % 1.3 % (0.0-3.0); HEMATOCRIT 37.8 % (36.0-47.0); HEMOGLOBIN 12.1 g/dl (12.0-15.5); LYMPH # 1.9 10^3/uL (1.5-5.0); LYMPH % 20.7 % (24.0-44.0); MEAN CORPUSCULAR HEMOGLOBIN 26.4 pg (27.0-33.0); MEAN CORPUSCULAR VOLUME 82.5 fl (80.0-96.0); MONO # 0.7 10^3/uL (0.0-0.8); MONO % 7.3 % (2.0-8.0); NEUTROPHILS # 6.4 10^3/uL (1.5-8.5); NEUTROPHILS % 69.9 % (36.0-66.0); PLATELET COUNT, AUTOMATED 332 10^3/uL (150-450); RED BLOOD COUNT 4.58 10^6/uL (4.00-5.40); WHITE BLOOD COUNT 9.2 10^3/uL (4.0-10.0)
[2021-07-21 15:58] LABS: BLOOD UREA NITROGEN 15 MG/DL (7-18); CALCIUM LEVEL 8.6 MG/DL (8.5-10.1); CARBON DIOXIDE LEVEL 28 MEQ/L (21-32); CHLORIDE LEVEL 108 MEQ/L (98-107); CREATININE FOR GFR 0.79 MG/DL (0.55-1.30); GLOMERULAR FILTRATION RATE > 60.0 (>60); GLUCOSE, FASTING 70 MG/DL (70-100); POTASSIUM SERUM 4.1 MEQ/L (3.5-5.1); SODIUM LEVEL 139 MEQ/L (136-145)
[2021-07-21] MEDS ORDERED: BACT800T5 PO (17:49)
[2021-07-21] MEDS ORDERED: METH-1164 PO (17:50)
[2021-07-21] MEDS ORDERED: LIDOCAINE 5% (LIDODERM) PATCH TD ONE (18:05)
[2021-07-21 18:09] VITALS: BP 137/100
[2021-07-21] MEDS ORDERED: **NOTE PATIENT COMMENT** MISC XX SCH (21:00)
== END 2021-07-21 18:10 | disposition home or self-care (01) ==
LOC: M ED 11:42
DX: M54.50 Low back pain, unspecified (principal); L03.90 Cellulitis, unspecified; I10 Essential (primary) hypertension; Z77.098 Contact with and (suspected) exposure to other hazardous, chiefly nonmedicinal, chemicals; Z79.899 Other long term (current) drug therapy

== ENCOUNTER → 2022-07-24 | Outpatient (REF) | payer OTHER ==
[~2022-07-24] MED LIST changes: -LABE100T4 PO; +LABE100T6 PO; -LABE300T2 PO; +LABE300T55 PO; -LISI-898; +LISI5TAB11; +METH-1164 PO
== END ==
LOC: M PLALAB 16:48
PROVIDERS: ATTEND Nurse Practitioner Family
DX: Z12.4 Encounter for screening for malignant neoplasm of cervix (principal)

== ENCOUNTER → 2023-03-05 | Outpatient (CLI) | payer OTHER | LOC: M WHC 07:54 | PROVIDERS: ATTEND Specialist | DX: N92.6 Irregular menstruation, unspecified (principal) ==

== ENCOUNTER 2023-03-29 06:15 | Day surgery (SDC) | payer OTHER ==
[~2023-03-29] VITALS: Ht 162.6 cm; Wt 73.0 kg
[~2023-03-29 06:15] MED LIST changes: +ceFAZolin SOD 2 GM in IV 1 EA IV ONE
[2023-03-29] MEDS ORDERED: LR 1,000 ML IV SCH ×3 (06:45→09:45)
[2023-03-29 07:15] LABS: HEMATOCRIT 45.2 % (36.0-47.0); HEMOGLOBIN 14.9 g/dl (12.0-15.5); MEAN CORPUSCULAR HEMOGLOBIN 28.8 pg (27.0-33.0); MEAN CORPUSCULAR VOLUME 87.3 fl (80.0-96.0); PLATELET COUNT, AUTOMATED 352 10^3/uL (150-450); RED BLOOD COUNT 5.18 10^6/uL (4.00-5.40); WHITE BLOOD COUNT 5.6 10^3/uL (4.0-10.0)
[2023-03-29] MEDS ORDERED: MIDAZOLAM INJ 2MG/2ML VIAL As Ordered ONE (07:23)
[2023-03-29] MEDS ORDERED: fentaNYL 250 MCG/5 ML INJECTION As Ordered ONE (07:23)
[2023-03-29] MEDS ORDERED: LIDOCAINE 2% 100MG/5ML SDV (FOR ANES.) As Ordered ONE (07:23)
[2023-03-29] MEDS ORDERED: propofoL 200 MG/20 ML VIAL As Ordered ONE (07:23)
[2023-03-29] MEDS ORDERED: ONDANSETRON 4MG 2ML VIAL As Ordered ONE (07:23)
[2023-03-29] MEDS ORDERED: ROCURONIUM BROMIDE 50MG/5ML VIAL As Ordered ONE (07:23)
[2023-03-29] MEDS ORDERED: SUGAMMADEX SODIUM 500 MG/5 ML VIAL (BRIDION) As Ordered ONE (08:02)
[2023-03-29] MEDS ORDERED: HYDROmorphone HCL 2MG/ML 1ML VIAL As Ordered ONE (08:02)
[2023-03-29] MEDS ORDERED: LACRILUBE (AKWA TEARS) OPHTH OINT 3.5GM As Ordered ONE (08:02)
[2023-03-29] MEDS ORDERED: ACETAMINOPHEN 1000MG 100ML IV BAG As Ordered ONE (08:02)
[2023-03-29] MEDS ORDERED: GLYCOPYRROLATE INJ 0.2 MG/ML 2 ML VIAL As Ordered ONE (08:27)
[2023-03-29] MEDS ORDERED: hydrALAZINE 20MG/ML 1ML VIAL As Ordered ONE (08:32)
[2023-03-29] MEDS ORDERED: KETOROLAC 60MG 2ML VIAL As Ordered ONE (08:44)
[2023-03-29] MEDS ORDERED: ONDANSETRON 4MG 2ML VIAL IV PRN (09:25)
[2023-03-29] MEDS ORDERED: METOCLOPRAMIDE INJ 10MG/2ML VIAL IV PRN (09:25)
[2023-03-29] MEDS ORDERED: oxyCODONE 5MG TAB PO PRN (09:25)
[2023-03-29] MEDS ORDERED: fentaNYL 100 MCG/2 ML INJECTION IV PRN (09:25)
[2023-03-29] MEDS ORDERED: HYDROMORPHONE HCL 0.5 MG/ 0.5 ML SYRINGE IV PRN (09:25)
[2023-03-29] MEDS ORDERED: PERCOCET 5MG/325MG TAB PO PRN (09:45)
[2023-03-29] MEDS ORDERED: OXYC1TAB23 PO (09:58)
[2023-03-29] MEDS ORDERED: IBUP-1022 PO (09:59)
[2023-03-29] MEDS ORDERED: PHENYLephrine 500MCG 5ML (100MCG/ML) SYRINGE As Ordered ONE (10:53)
[2023-03-29 11:05] VITALS: BP 134/80; TEMP 97.6; O2SAT 98
== END 2023-03-29 11:10 | disposition home or self-care (01) ==
LOC: M SDC 06:15
PROVIDERS: ATTEND Specialist
DX: D25.2 Subserosal leiomyoma of uterus (principal); N80.03 Adenomyosis of the uterus; N88.8 Other specified noninflammatory disorders of cervix uteri; Z30.46 Encounter for surveillance of implantable subdermal contraceptive; N92.0 Excessive and frequent menstruation with regular cycle; I10 Essential (primary) hypertension; M54.9 Dorsalgia, unspecified; F31.9 Bipolar disorder, unspecified; F17.290 Nicotine dependence, other tobacco product, uncomplicated; Z79.899 Other long term (current) drug therapy
CPT/HCPCS: 11982; 36415; 58571; 85027; 86850; 88300; 88307; J0131; J0360; J0690; J1100; J1170; J1885; J2250; J2370; J2405; J3010; S2900

== ENCOUNTER → 2023-05-25 | Outpatient (REF) | payer OTHER ==
[~2023-05-25] MED LIST changes: +OXYC1TAB23 PO; -ceFAZolin SOD 2 GM in IV 1 EA IV ONE
[2023-05-25 17:30] LABS: ALBUMIN 3.9 G/DL (3.2-5.2); ALKALINE PHOSPHATASE 111 U/L (46-116); ALT/SGPT 15 U/L (7.0-40); AST/SGOT < 8 U/L (<34); BILIRUBIN,TOTAL 0.5 MG/DL (0.3-1.2); BLOOD UREA NITROGEN 12 MG/DL (9-23); CALCIUM LEVEL 9.3 MG/DL (8.5-10.1); CARBON DIOXIDE LEVEL 29 MMOL/L (20-31); CHLORIDE LEVEL 103 MMOL/L (98-107); CREATININE FOR GFR 0.64 MG/DL (0.55-1.30); GLOMERULAR FILTRATION RATE > 60.0 (>60); GLUCOSE, FASTING 79 MG/DL (60-100); MAGNESIUM LEVEL 2.1 MG/DL (1.8-2.4); POTASSIUM SERUM 3.7 MMOL/L (3.5-5.1); SODIUM LEVEL 140 MMOL/L (136-145); TOTAL PROTEIN 7.3 G/DL (5.7-8.2)
== END ==
LOC: M LAB REF 16:39
PROVIDERS: ATTEND Nurse Practitioner Family
DX: I10 Essential (primary) hypertension (principal)

== ENCOUNTER → 2024-03-22 | Outpatient (REF) | payer OTHER ==
[~2024-03-22] MED LIST changes: +LABE300T28 PO; -LABE300T55 PO
[2024-03-22 17:12] LABS: BASO # 0.1 10^3/uL (0.0-0.2); BASO % 0.7 % (0.0-1.0); EOS # 0.2 10^3/uL (0.0-0.5); EOS % 2.6 % (0.0-3.0); HEMATOCRIT 39.2 % (36.0-47.0); HEMOGLOBIN 13.3 g/dl (12.0-15.5); LYMPH # 1.9 10^3/uL (1.5-5.0); LYMPH % 25.8 % (24.0-44.0); MEAN CORPUSCULAR HEMOGLOBIN 30.2 pg (27.0-33.0); MEAN CORPUSCULAR HGB CONC 33.9 g/dl (32.0-36.5); MEAN CORPUSCULAR VOLUME 88.9 fl (80.0-96.0); MONO # 0.5 10^3/uL (0.0-0.8); MONO % 6.2 % (2.0-8.0); NEUTROPHILS # 4.8 10^3/uL (1.5-8.5); NEUTROPHILS % 64.3 % (36.0-66.0); PLATELET COUNT, AUTOMATED 324 10^3/uL (150-450); RED BLOOD COUNT 4.41 10^6/uL (4.00-5.40); WHITE BLOOD COUNT 7.4 10^3/uL (4.0-10.0)
[2024-03-22 17:25] LABS: HEMOGLOBIN A1c 4.9 % (4.0-6.0)
[2024-03-22 17:35] LABS: THYROID STIMULATING HORMONE 1.348 uIU/ML (0.55-4.78); TOTAL 25(OH) VITAMIN D 19.4 NG/ML (20.0-100.0)
[2024-03-22 17:36] LABS: ALBUMIN 3.9 G/DL (3.2-5.2); ALKALINE PHOSPHATASE 102 U/L (46-116); ALT/SGPT 21 U/L (7.0-40); AST/SGOT 11 U/L (<34); BILIRUBIN,TOTAL 0.3 MG/DL (0.3-1.2); BLOOD UREA NITROGEN 18 MG/DL (9-23); CALCIUM LEVEL 9.4 MG/DL (8.5-10.1); CARBON DIOXIDE LEVEL 30 MMOL/L (20-31); CHLORIDE LEVEL 106 MMOL/L (98-107); CHOLESTEROL LEVEL 186 MG/DL (<200); CHOLESTEROL RISK RATIO 3.47 (<5); CREATININE FOR GFR 0.73 MG/DL (0.55-1.30); GLOMERULAR FILTRATION RATE > 60.0 (>60); GLUCOSE, FASTING 124 MG/DL (60-100); HDL CHOLESTEROL 53.5 MG/DL (>40); LDL CHOLESTEROL 104.5 MG/DL (<100); MAGNESIUM LEVEL 2.1 MG/DL (1.8-2.4); NON-HDL-C 132.5 MG/DL; SODIUM LEVEL 141 MMOL/L (136-145); TOTAL PROTEIN 7.1 G/DL (5.7-8.2); TRIGLYCERIDES LEVEL 140 MG/DL (<150)
== END ==
LOC: M LAB REF 16:32
PROVIDERS: ATTEND Nurse Practitioner Family
DX: E66.3 Overweight (principal); E55.9 Vitamin D deficiency, unspecified